=== PATIENT | female | born 1930 | race Asian ===

== ENCOUNTER 2017-02-21 10:12 | Inpatient (IN) | payer MEDICAID ==
[~2017-02-21] VITALS: Ht 162.6 cm; Wt 59.0 kg
[~2017-02-21 10:12] MED LIST: ACETAMINOP160 MG/53 ORAL; ACETAMINOPHEN325 M1 ORAL; ASCORBIC ACID500 MG ORAL; BENADRYL A12.5 MG/5 ORAL; BISACODYL5 MG RECTAL; CEFTRIAXON1 GM/50 ML IV; COLACE100 MG/10 NG; DOCUSATE SODIU100 MG ORAL; DULCOLAX10 MG RECTAL; DUONEB 0.5-3(2.53 ML HHN; HEPARIN SO5000 UNIT2 SUBQ; IPRATROPIU0.2 MG/1 M HHN; ISOSOURCE PO; LEVAQUIN500 MG ORAL; MIRALAX17 G2 ORAL; MIRALAX17 GM ORAL; MULTIVITAMINS1 EAC8 ORAL; NKM; PROTONIX40 M2 GT; ROCEPHIN 11 GM/50 ML IVPB; ROCEPHIN2 GM/50 ML IV; SALINE 10ML FLU10 ML IVF; ZINC SULFATE220 M1 ORAL
[2017-02-21] MEDS ORDERED: DOCUSATE SODIU100 MG GT (10:32)
[2017-02-21] MEDS ORDERED: VITAMIN C500 M1 GT (10:32)
[2017-02-21] MEDS ORDERED: MULTIVITAMINS1 EAC8 GT (10:32)
[2017-02-21 10:48] LABS: BASOPHILS % (AUTO) 0.5 % (0.0-2.0); EOSINOPHILS % (AUTO) 1.8 % (0.0-3.0); LYMPHOCYTES % (AUTO) 19.4 % (20.0-45.0); MEAN CORPUSCULAR HEMOGLOBIN 30.3 PG (27.0-31.0); MEAN CORPUSCULAR HGB CONC 30.9 G/DL (32.0-36.0); MEAN CORPUSCULAR VOLUME 98 FL (80-99); MEAN PLATELET VOLUME 8.1 FL (6.5-10.1); MONOCYTES % (AUTO) 9.9 % (1.0-10.0); NEUTROPHILS % (AUTO) 68.5 % (45.0-75.0); PLATELET COUNT 290 K/UL (150-450); WHITE BLOOD COUNT 11.7 K/UL (4.8-10.8)
[2017-02-21 11:07] LABS: TROPONIN I < 0.30 ng/mL (<=0.30)
[2017-02-21 11:08] VITALS: BP 151/98
[2017-02-21 11:10] LABS: ALANINE AMINOTRANSFERASE 15 U/L (3-33); ALBUMIN/GLOBULIN RATIO 0.5 (1.0-2.7); ANION GAP 17 (5-15); ASPARTATE AMINO TRANSFERASE 19 U/L (5-40); CALCIUM 9.3 mg/dL (8.6-10.2); CARBON DIOXIDE 26 mEQ/L (20-30); CHLORIDE 100 mEQ/L (98-107); CREATININE 0.9 mg/dL (0.5-0.9); HEMOLYSIS 0; POTASSIUM 4.4 mEQ/L (3.4-4.9); SODIUM 143 mEQ/L (135-145); TOTAL PROTEIN 9.2 g/dL (6.6-8.7)
[2017-02-21 11:20] LABS: CKMB < 1.5 ng/mL (< 3.8)
[2017-02-21 11:26] LABS: APPEARANCE,URINE CLOUDY; KETONES,URINE NEGATIVE (NEGATIVE); LEUKOCYTE ESTERASE ,URINE 3+ (NEGATIVE); NITRITE,URINE NEGATIVE (NEGATIVE); PH,URINE 6 (4.5-8.0); PROTEIN,URINE 3+ (NEGATIVE); UROBILINOGEN,URINE 4 MG/DL (0.0-1.0)
--- NOTE | 2017-02-21 11:26 | Diagnostic Imaging Report ---
Indications: Shortness of breath Technique: Portable AP chest Findings: Comparison: 01/26/2016 Mild left apical pleural thickening, 2 cm calcified nodule in/overlying left lung apex, linear density compatible with subsegmental atelectasis versus scarring left lung base all persist, unchanged. Right lung pleura remain relatively clear. Heart size and pulmonary vasculature remain within normal limits. Calcification and mild elongation of the thoracic aorta again noted and unchanged. IMPRESSION: No evidence of acute cardiopulmonary disease, unchanged Stable chronic changes as described
[2017-02-21] MEDS ORDERED: Cefepime 1gm vial ONE (11:37)
[2017-02-21] MEDS ORDERED: NS 55 ML IV ONE (11:37)
[2017-02-21 11:40] LABS: AMORPHOUS SEDIMENT,UR MODERATE /LPF; BACTERIA,URINE MANY /HPF; RBC,URINE 20-30 /HPF (0 - 2); SQUAMOUS EPITHELIAL CELL,UR MODERATE /LPF (NONE/OCC); WBC,URINE TNTC /HPF (0 - 2)
[2017-02-21] MEDS ORDERED: Azithromycin 500 MG in NS 275 ML IV ONE (11:45)
[2017-02-21] MEDS ORDERED: Cefepime HCl 1 GM in NS 55 ML IV ONE (11:45)
--- NOTE | 2017-02-21 11:50 | Emergency Room Report ---
History of Present Illness General Chief Complaint: Generalized Weakness Source: Medical Record, EMS Present Illness HPI 86-year-old female presents ED for evaluation. Patient resides in senior care. Per nursing staff patient has been having cough and congestive symptoms x1 day. Low O2 saturation. Patient placed on nasal cannula. Patient has dementia. Number blood baseline. Unable to provide any additional history at this time. Low-grade fever on rectal temperature. No reported chest pain. No reported nausea or vomiting. No other aggravating relieving factors. Denies any other associated symptoms Allergies: Coded Allergies: No Known Allergies (Unverified , 08/29/14) Patient History Past Medical History: HTN, GERD, CVA/TIA, dementia Past Surgical History: other - gtube Social History: Denies: alcohol use, drug use, smoking Now: No Immunizations: UTD Reviewed Nursing Documentation: PMH: Agreed, PSxH: Agreed Nursing Documentation-PMH Past Medical History: No History, Except For Hx Hypertension: Yes Hx Pacemaker: No Hx Asthma: No Hx COPD: No Hx Diabetes: No Hx Cancer: No Hx Gastrointestinal Problems: Yes - G tube, GERD Hx Dialysis: No Hx Neurological Problems: Yes - dementia Hx Cerebrovascular Accident: Yes Hx Transient Ischemic Attacks: Yes Hx Dementia: Yes Hx Seizures: No Hx Syncope: Yes Hx Dysphasia: Yes Review of Systems All Other Systems: negative except mentioned in HPI Physical Exam Vital Signs Date Time Temp Pulse Resp B/P Pulse Ox O2 Delivery O2 Flow Rate FiO2 02/21/17 10:05 97.7 107 20 123/75 97 Nasal Cannula 2.0 Sp02 EP Interpretation: reviewed, normal General Appearance: no apparent distress, other - dementia Head: normocephalic Eyes: bilateral eye PERRL, bilateral eye normal inspection ENT: normal ENT inspection Neck: normal inspection Respiratory: rhonchi Cardiovascular #1: regular rate, rhythm, no edema Gastrointestinal: normal inspection Rectal: deferred Genitourinary: no CVA tenderness Musculoskeletal: normal inspection Neurologic: other - dementia Psychiatric: other - dementia Skin: normal inspection Lymphatic: normal inspection Medical Decision Making Diagnostic Impression: Primary Impression: Pneumonia Qualified Codes: J18.9 - Pneumonia, unspecified organism Additional Impression: UTI (lower urinary tract infection) ER Course Hospital Course 86-year-old F presenting to ED with respiratory distress, cough and crackles Differential diagnoses include: Pneumonia, CHF exacerbation, pneumothorax, fluid overload Clinical course Patient placed on stretcher. On cardiac exercise physiologist with hypoxia on room air. After initial history and physical, I ordered labs, IV fluids, EKG, chest x-ray , blood cultures, UA. Patient placed on nasal cannula with O2 saturation improving Labs -leukocytosis noted, hemoglobin/hematocrit stable, electrolytes ok, lactate okay, trop negative. UA + bacteria CXR - L sided atelectasis Patient O2 sat remains above 90% on nasal cannula. Abx given Case discussed with Dr. Rodriguez and he agreed to the patient to his service for further care and support I feel this is a highly complex case requiring extensive working including EKG/ Rhythm strip, Xray/CT/US, Blood/urine lab work, repeat exams while in ED, and administration of strong opiates/narcotics for pain control, admission to hospital or close patient follow up. Diagnosis - pneumonia, UTI Patient admitted to telemetry in serious condition Labs Test 02/21/17 10:20 02/21/17 11:05 White Blood Count 11.7 K/UL (4.8-10.8) Red Blood Count 3.40 M/UL (4.20-5.40) Hemoglobin 10.3 G/DL (12.0-16.0) Hematocrit 33.3 % (37.0-47.0) Mean Corpuscular Volume 98 FL (80-99) Mean Corpuscular Hemoglobin 30.3 PG (27.0-31.0) Mean Corpuscular Hemoglobin Concent 30.9 G/DL (32.0-36.0) Red Cell Distribution Width 15.0 % (11.6-14.8) Platelet Count 290 K/UL (150-450) Mean Platelet Volume 8.1 FL (6.5-10.1) Neutrophils (%) (Auto) 68.5 % (45.0-75.0) Lymphocytes (%) (Auto) 19.4 % (20.0-45.0) Monocytes (%) (Auto) 9.9 % (1.0-10.0) Eosinophils (%) (Auto) 1.8 % (0.0-3.0) Basophils (%) (Auto) 0.5 % (0.0-2.0) Sodium Level 143 mEQ/L (135-145) Potassium Level 4.4 mEQ/L (3.4-4.9) Chloride Level 100 mEQ/L (98-107) Carbon Dioxide Level 26 mEQ/L (20-30) Anion Gap 17 (5-15) Blood Urea Nitrogen 28 mg/dL (7-23) Creatinine 0.9 mg/dL (0.5-0.9) Estimat Glomerular Filtration Rate mL/min (>60) Glucose Level 157 mg/dL (74-106) Lactic Acid Level 1.40 mmol/L (0.66-2.22) Calcium Level 9.3 mg/dL (8.6-10.2) Total Bilirubin 0.7 mg/dL (0.0-1.2) Aspartate Amino Transf (AST/SGOT) 19 U/L (5-40) Alanine Aminotransferase (ALT/SGPT) 15 U/L (3-33) Alkaline Phosphatase 210 U/L (35-104) Total Creatine Kinase 55 U/L (26-140) Creatine Kinase MB < 1.5 ng/mL (< 3.8) Creatine Kinase MB Relative Index Troponin I < 0.30 ng/mL (<=0.30) Pro-B-Type Natriuretic Peptide 393 pg/mL (0-450) Total Protein 9.2 g/dL (6.6-8.7) Albumin 3.1 g/dL (3.5-5.2) Globulin 6.1 g/dL Albumin/Globulin Ratio 0.5 (1.0-2.7) Urine Color Yellow Urine Appearance Cloudy Urine pH 6 (4.5-8.0) Urine Specific [place] 1.020 (1.005-1.035) Urine Protein 3+ (NEGATIVE) Urine Glucose (UA) Negative (NEGATIVE) Urine Ketones Negative (NEGATIVE) Urine Occult Blood 5+ (NEGATIVE) Urine Nitrite Negative (NEGATIVE) Urine Bilirubin Negative (NEGATIVE) Urine Urobilinogen 4 MG/DL (0.0-1.0) Urine Leukocyte Esterase 3+ (NEGATIVE) Urine RBC 20-30 /HPF (0 - 2) Urine WBC Tntc /HPF (0 - 2) Urine Squamous Epithelial Cells Moderate /LPF (NONE/OCC) Urine Amorphous Sediment Moderate /LPF (NONE) Urine Bacteria Many /HPF (NONE) EKG Diagnostic Results Rate: normal Rhythm: NSR ST Segments: no acute changes ASA given to the pt in ED: No Rhythm Strip Diag. Results EP Interpretation: yes Rhythm: NSR, no PVC's, no ectopy Chest X-Ray Diagnostic Results EP Interpretation: Yes Findings: no pneumothorax, no acute cardiopulmonary disease, other - L sided atelectasis ? effusion Number of Views: 1 Last Vital Signs Date Time Temp Pulse Resp B/P Pulse Ox O2 Delivery O2 Flow Rate FiO2 02/21/17 11:08 100.4 107 21 151/98 99 Nasal Cannula 2.0 Status: improved Disposition: ADMITTED INPATIENT Condition: Serious Referrals: ANTONY RODRIGUEZ (PCP) RADHA LEWIS M.D. Feb 21, 2017 11:50
[2017-02-21] MEDS ORDERED: Azithromycin Inj IV ONE (12:17)
[2017-02-21 13:41] VITALS: BP 119/41
--- NOTE | 2017-02-21 13:53 | History and Physical ---
History of Present Illness General Date patient seen: Feb 21, 2017 Time patient seen: 13:00 Reason for Hospitalization: Generalized Weakness Present Illness HPI 86-year-old female with hx of CVA, dysphagia, G tube, dementia, HTN presented to ED for evaluation. Patient resides in [facility]. Per nursing staff patient had cough and congestive symptoms x1 day. Low O2 saturation. No reported chest pain. No reported nausea or vomiting. Workup in ED revealed low-grade fever/rectal temp O2 sat 90% on RA, placed on NC mild leukocytosis, anemia UA + UTI, CXR with possible L side infiltrate patient admitted for further management Allergies: Coded Allergies: No Known Allergies (Unverified , 08/29/14) Medication History Scheduled Ascorbic Acid* (Vitamin C*), 500 MG GT DAILY, (Reported) Docusate Sodium* (Docusate Sodium*), 10 MG ORAL THREE TIMES A DAY, (Reported) Docusate Sodium* (Docusate Sodium*), 100 MG GT TWICE A DAY, (Reported) Heparin Sod (Porcine) (Heparin Sodium*), 5,000 UNITS SUBQ EVERY 12 HOURS, ( Reported) Multivitamin With Minerals (Multivitamins With Minerals*), 1 TAB ORAL DAILY, ( Reported) Multivitamin With Minerals (Multivitamins With Minerals*), 15 ML GT DAILY, ( Reported) Polyethylene Glycol 3350* (Miralax*), 17 GM ORAL DAILY, (Reported) Scheduled PRN Acetaminophen (Children's Acetaminophen), 325 MG ORAL Q6H PRN for Mild Pain/ Temp > 100.5, (Reported) Bisacodyl* (Dulcolax*), 10 MG RECTAL ONCE PRN for Constipation, (Reported) Ipratropium [place] 0.5MG/2.5ML (Ipratropium Soldier 0.5MG/2.5ML), 0.5 MG HHN Q6H PRN for Shortness of Breath, (Reported) Miscellaneous Medications Enteral Nutrition Formula (Twocal Hn Liquid), 65 ML PO, (Reported) Patient History History Provided By: Medical Record Healthcare decision maker Resuscitation status Advanced Directive on File Past Medical/Surgical History Past Medical/Surgical History: (1) Dementia (2) History of CVA (cerebrovascular accident) (3) Dysphagia (4) PEG tube malfunction (5) Anemia (6) CHF (congestive heart failure) (7) HTN (hypertension) Review of Systems ROS Narrative unable to obtain due to ALOC Physical Exam General Appearance: no apparent distress, other - chronically ill looking, nonverbal, bedridden female in NAD Lines, tubes and drains: peripheral HEENT: normocephalic, atraumatic, anicteric Neck: supple - trachea midline Respiratory/Chest: no respiratory distress, no accessory muscle use, decreased breath sounds Cardiovascular/Chest: normal rate, regular rhythm, no JVD Abdomen: normal bowel sounds, soft, feeding tube - G tube Extremities: no calf tenderness, no edema, other - contracted LE Neurologic: abnormal gait - bedridden , other - awake, nonverbal, spastic LE Last 24 Hour Vital Signs Date Time Temp Pulse Resp B/P Pulse Ox O2 Delivery O2 Flow Rate FiO2 02/21/17 13:41 100.1 107 20 119/41 100 Nasal Cannula 2.0 02/21/17 11:08 100.4 107 21 151/98 99 Nasal Cannula 2.0 02/21/17 10:05 97.7 107 20 123/75 97 Nasal Cannula 2.0 Laboratory Tests Test 02/21/17 10:20 02/21/17 11:05 White Blood Count 11.7 K/UL (4.8-10.8) H Red Blood Count 3.40 M/UL (4.20-5.40) L Hemoglobin 10.3 G/DL (12.0-16.0) L Hematocrit 33.3 % (37.0-47.0) L Mean Corpuscular Volume 98 FL (80-99) Mean Corpuscular Hemoglobin 30.3 PG (27.0-31.0) Mean Corpuscular Hemoglobin Concent 30.9 G/DL (32.0-36.0) L Red Cell Distribution Width 15.0 % (11.6-14.8) H Platelet Count 290 K/UL (150-450) Mean Platelet Volume 8.1 FL (6.5-10.1) Neutrophils (%) (Auto) 68.5 % (45.0-75.0) Lymphocytes (%) (Auto) 19.4 % (20.0-45.0) L Monocytes (%) (Auto) 9.9 % (1.0-10.0) Eosinophils (%) (Auto) 1.8 % (0.0-3.0) Basophils (%) (Auto) 0.5 % (0.0-2.0) Sodium Level 143 mEQ/L (135-145) Potassium Level 4.4 mEQ/L (3.4-4.9) Chloride Level 100 mEQ/L (98-107) Carbon Dioxide Level 26 mEQ/L (20-30) Anion Gap 17 (5-15) H Blood Urea Nitrogen 28 mg/dL (7-23) H Creatinine 0.9 mg/dL (0.5-0.9) Estimat Glomerular Filtration Rate mL/min (>60) Glucose Level 157 mg/dL (74-106) H Lactic Acid Level 1.40 mmol/L (0.66-2.22) Calcium Level 9.3 mg/dL (8.6-10.2) Total Bilirubin 0.7 mg/dL (0.0-1.2) Aspartate Amino Transf (AST/SGOT) 19 U/L (5-40) Alanine Aminotransferase (ALT/SGPT) 15 U/L (3-33) Alkaline Phosphatase 210 U/L (35-104) H Total Creatine Kinase 55 U/L (26-140) Creatine Kinase MB < 1.5 ng/mL (< 3.8) Creatine Kinase MB Relative Index Troponin I < 0.30 ng/mL (<=0.30) Pro-B-Type Natriuretic Peptide 393 pg/mL (0-450) Total Protein 9.2 g/dL (6.6-8.7) H Albumin 3.1 g/dL (3.5-5.2) L Globulin 6.1 g/dL Albumin/Globulin Ratio 0.5 (1.0-2.7) L Urine Color Yellow Urine Appearance Cloudy Urine pH 6 (4.5-8.0) Urine Specific [place] 1.020 (1.005-1.035) Urine Protein 3+ (NEGATIVE) H Urine Glucose (UA) Negative (NEGATIVE) Urine Ketones Negative (NEGATIVE) Urine Occult Blood 5+ (NEGATIVE) H Urine Nitrite Negative (NEGATIVE) Urine Bilirubin Negative (NEGATIVE) Urine Urobilinogen 4 MG/DL (0.0-1.0) H Urine Leukocyte Esterase 3+ (NEGATIVE) H Urine RBC 20-30 /HPF (0 - 2) H Urine WBC Tntc /HPF (0 - 2) H Urine Squamous Epithelial Cells Moderate /LPF (NONE/OCC) H Urine Amorphous Sediment Moderate /LPF (NONE) H Urine Bacteria Many /HPF (NONE) H Height (Feet): 5 Height (Inches): 4.00 Weight (Pounds): 130 Assessment/Plan Assessment/Plan ASSESSMENT hypoxemia UTI possible PNA aspiration risk dementia Dysphagia, G tube Hx of CVA HTN anemia PLAN OF CARE tele o2 HHN , titrate to keep sat above 92% empiric abx sputum , urine cx ID consult CXR in am strict aspiration precautions GT feeding, monitor tolerance diet eval re recommended GT feeding venous Duplex BLE DVT prophylaxis bowel regimen pain management lipid panel in am monitor BP, currently not on any anti HTN medications monitor HH, if trend down, initiate anemia work case discussed and evaluated by supervising physician German Browne),Valentina NIELSEN Feb 21, 2017 13:53
[2017-02-21] MEDS ORDERED: Mylanta II UD 30ml ORAL PRN (14:00)
[2017-02-21] MEDS ORDERED: Miralax 17gm pkt ORAL PRN (14:00)
[2017-02-21] MEDS ORDERED: Morphine Sulfate 2mg/ml Inj IVP PRN (14:00)
[2017-02-21] MEDS ORDERED: DuoNeb 0.5-3(2.5)mg/3ml neb HHN PRN (14:00)
[2017-02-21 15:40] VITALS: BP 120/41
[2017-02-21 16:45] VITALS: BP 151/74
[2017-02-21] MEDS: D5 1/2NS 1,000 ML IV SCH (17:07)
[2017-02-21] MEDS ORDERED: Vancomycin 1250mg/D5W 275ml IVPB ONE ×2 (18:00)
[2017-02-21 20:00] VITALS: BP 114/53
[2017-02-21] MEDS ORDERED: Piperacillin/Tazobactam 3.375 GM in NS 110 ML IVPB SCH (20:00)
[2017-02-21] MEDS: Piperacillin/Tazobactam 3.375 GM in NS 110 ML IVPB SCH (20:06)
[2017-02-21] MEDS: Heparin 5000 units/ml inj SUBQ SCH (20:44)
[2017-02-21] MEDS ORDERED: Zolpidem 5mg tab ORAL PRN (21:00)
[2017-02-22] VITALS: BP 112/56
[2017-02-22] MEDS ORDERED: Acetaminophen 650mg/20.3ml GT PRN ×2 (01:00→21:00)
[2017-02-22 04:00] VITALS: BP 115/56
[2017-02-22] MEDS: Piperacillin/Tazobactam 3.375 GM in NS 110 ML IVPB SCH ×3 (05:36→21:50)
[2017-02-22 06:36] LABS: BASOPHILS % (AUTO) 0.7 % (0.0-2.0); EOSINOPHILS % (AUTO) 4.2 % (0.0-3.0); LYMPHOCYTES % (AUTO) 13.7 % (20.0-45.0); MEAN CORPUSCULAR HEMOGLOBIN 30.1 PG (27.0-31.0); MEAN CORPUSCULAR HGB CONC 30.5 G/DL (32.0-36.0); MEAN CORPUSCULAR VOLUME 99 FL (80-99); MEAN PLATELET VOLUME 8.4 FL (6.5-10.1); MONOCYTES % (AUTO) 8.3 % (1.0-10.0); NEUTROPHILS % (AUTO) 73.1 % (45.0-75.0); PLATELET COUNT 246 K/UL (150-450); RED BLOOD COUNT 2.77 M/UL (4.20-5.40); RED CELL DISTRIBUTION WIDTH 15.5 % (11.6-14.8); WHITE BLOOD COUNT 9.4 K/UL (4.8-10.8)
[2017-02-22 07:14] LABS: ANION GAP 13 (5-15); CALCIUM 8.5 mg/dL (8.6-10.2); CARBON DIOXIDE 25 mEQ/L (20-30); CHLORIDE 104 mEQ/L (98-107); CHOLESTEROL 116 mg/dL (< 200); CREATININE 0.9 mg/dL (0.5-0.9); HEMOLYSIS 0; LDL CHOLESTEROL (CALC.) 66 mg/dL (60-99); SODIUM 142 mEQ/L (135-145)
[2017-02-22 08:03] VITALS: BP 94/44
[2017-02-22] MEDS: Heparin 5000 units/ml inj SUBQ SCH ×2 (09:11→21:54)
--- NOTE | 2017-02-22 11:36 | Diagnostic Imaging Report ---
Indication: SOB Technique: One view of the chest Comparison: none Findings: Calcified granuloma is seen in the left lung apex again. There is some atelectasis or scarring in the left lateral lung base. The lungs and pleural spaces are otherwise clear. Impression: Unchanged, over one day, findings as above.
[2017-02-22] MEDS: D5 1/2NS 1,000 ML IV SCH ×2 (11:52→21:49)
--- NOTE | 2017-02-22 11:55 | Diagnostic Imaging Report ---
APPROVED REPORT CPT Code: 99584 Present Symptoms Lower Extremity Pain: Bilateral BILATERAL: Imaging reveals a patent deep venous system bilaterally. There is no evidence of thrombus within the femoral, popliteal or tibial segments. The greater saphenous veins are also within normal limits. Doppler indicates normal spontaneous flow within these segments.
[2017-02-22 11:59] VITALS: BP 100/52
--- NOTE | 2017-02-22 13:02 | Consultation ---
Consult Note Assessment/Plan ID Dic # [id number] MICRO: 01/25 BCx NGTD 01/25 UCx >100K P.mirabilis / SCx NRF 01/25 Influenza(-) ASSESSMENT: 85 y/o female with: // Recurrent UTI - h/o P.mirabilis, E.coli, ESBL(+) K.pneumoniae - h/o cysts, no stones CT 05/2015 // Multiple superficial decubiti, not grossly infected // h/o CONS, P.penneri bacteremia r/o recurrence - BCx pending // Leukocytosis, SP // Fever x1 - resolved // Dementia, h/o CVA // Dysphagia s/p PEG // Functional quadriplegia / bedbound / contracted // NH resident // MRSA colonized // NKDA // Full Code PLAN: - continue Zosyn d# 2 / 7 DC IV vancomycin d# 2 - f/u cultures ( Bl ,Ur ) - monitor CBC, temperatures - monitor BMP - monitor CXR - wound care - contact isolation WILL MURRELL M.D. February 22, 2017 13:02
--- NOTE | 2017-02-22 15:06 | Pulmonology Progress Note ---
Assessment/Plan Problems: (1) Sepsis (2) Dementia (3) Anemia (4) History of CVA (cerebrovascular accident) Assessment/Plan IV fluids IV antibiotics check cultures tolerating Gtube aspiration precaution Subjective ROS Limited/Unobtainable: Yes Interval Events: comfortable Allergies: Coded Allergies: No Known Allergies (Unverified , 08/29/14) Objective Last 24 Hour Vital Signs Date Time Temp Pulse Resp B/P Pulse Ox O2 Delivery O2 Flow Rate FiO2 02/22/17 11:59 97.0 64 18 100/52 97 Room Air 02/22/17 08:03 97.0 91 18 94/44 96 Simple Mask 2.0 02/22/17 08:00 86 02/22/17 04:00 97.9 86 20 115/56 Nasal Cannula 2.0 98 02/22/17 04:00 94 02/22/17 01:56 99.0 02/22/17 00:00 115 02/22/17 00:00 100.0 115 20 112/56 Nasal Cannula 2.0 100 02/21/17 20:00 99.0 110 18 114/53 Nasal Cannula 2.0 100 02/21/17 20:00 107 02/21/17 16:45 97.0 64 18 151/74 Nasal Cannula 2.0 95 02/21/17 15:41 99.8 106 20 120/41 100 Nasal Cannula 2.0 02/21/17 15:40 99.8 106 20 120/41 100 Nasal Cannula 2.0 Intake and Output 02/21/17 02/22/17 19:00 07:00 Intake Total 1380 ml 1102.5 ml Output Total 10 ml 650 ml Balance 1370 ml 452.5 ml Intake Free Water 90 ml IV Total 1380 ml 737.5 ml Tube Feeding 275 ml Output Urine Total 10 ml 650 ml General Appearance: WD/WN HEENT: normocephalic, atraumatic Respiratory/Chest: chest wall non-tender, lungs clear Cardiovascular: normal peripheral pulses, normal rate Abdomen: normal bowel sounds, soft, non tender, other - gtube Extremities: no cyanosis Skin: no rash Neurologic/Psychiatric: chief controller station II-XII grossly normal Microbiology Date/Time Source Procedure Growth Status 02/21/17 10:50 Blood Blood Culture - Preliminary Resulted 02/21/17 11:05 Urine,Clean Catch Urine Culture - Preliminary Gram Negative Bacillus 1 Resulted Laboratory Tests 02/22/17 05:50: White Blood Count 9.4, Red Blood Count 2.77L, Hemoglobin 8.3L, Hematocrit 27.3L , Mean Corpuscular Volume 99, Mean Corpuscular Hemoglobin 30.1, Mean Corpuscular Hemoglobin Concent 30.5L, Red Cell Distribution Width 15.5H, Platelet Count 246, Mean Platelet Volume 8.4, Neutrophils (%) (Auto) 73.1, Lymphocytes (%) (Auto) 13.7L, Monocytes (%) (Auto) 8.3, Eosinophils (%) (Auto) 4.2H, Basophils (%) (Auto) 0.7, Sodium Level 142, Potassium Level 4.0, Chloride Level 104, Carbon Dioxide Level 25, Anion Gap 13, Blood Urea Nitrogen 25H, Creatinine 0.9, Estimat Glomerular Filtration Rate , Glucose Level 202H, Calcium Level 8.5L, Triglycerides Level 106, Cholesterol Level 116, LDL Cholesterol 66, HDL Cholesterol 29, Cholesterol/HDL Ratio 4.0, Thyroid Stimulating Hormone (TSH) 1.570 Current Medications Medications (Trade) Dose Ordered Sig/Yasmine Route PRN Reason Start Time Stop Time Status Last Admin Dose Admin Acetaminophen (Tylenol) 650 mg Q4H PRN GT Mild Pain/Temp > 100.5 02/22/17 01:00 03/24/17 00:59 02/22/17 01:26 Al Hydroxide/Mg Hydroxide (Mylanta II) 30 ml Q6H PRN ORAL dyspepsia 02/21/17 14:00 03/23/17 13:59 Albuterol/ Ipratropium (DuoNeb 0.5-3(2.5)mg/3ml) 3 ml Q6H PRN HHN Shortness of Breath 02/21/17 14:00 02/26/17 13:59 Dextrose STAT PRN IV Hypoglycemia 02/21/17 14:00 03/23/17 13:59 Dextrose/Sodium Chloride (D5 0.45% NS) 1,000 ml @ 50 mls/hr Q20H IV 02/21/17 15:30 03/23/17 15:29 02/22/17 11:52 Diphenhydramine HCl (Benadryl) 25 mg Q6H PRN ORAL Itching/Pruritis 02/21/17 14:00 03/23/17 13:59 Heparin Sodium (Porcine) (Heparin 5000 units/ml) 5,000 units EVERY 12 HOURS SUBQ 02/21/17 21:00 03/23/17 20:59 02/22/17 09:11 Morphine Sulfate (Morphine Sulfate) 1 mg Q6H PRN IVP PAIN 4-10 02/21/17 14:00 02/28/17 13:59 Ondansetron HCl (Zofran) 4 mg Q6H PRN IVP Nausea & Vomiting 02/21/17 14:00 03/23/17 13:59 Piperacillin Sod/ Tazobactam Sod/ Sodium Chloride (Zosyn/Sodium Chloride) 110 ml @ 27.5 mls/hr Q8HR IVPB 02/21/17 20:00 02/28/17 19:59 02/22/17 13:50 Polyethylene Glycol (Miralax) 17 gm DAILYPRN PRN ORAL Constipation 02/21/17 14:00 03/23/17 13:59 Ranitidine HCl (Zantac) 150 mg DAILY GT 02/22/17 09:00 03/24/17 08:59 02/22/17 09:10 Zolpidem Tartrate (Ambien) 5 mg HSPRN PRN ORAL Insomnia 02/21/17 21:00 03/23/17 20:59 ANTONY NORRIS February 22, 2017 15:06
--- NOTE | 2017-02-22 16:05 | Wound Care Consultation ---
Wound Assessment Wound Assessment #1: Wound Present on Admission: Yes New Wound: No Status Change of Wound: No Wound Location Body Site Modif: left, upper Wound Location Body Site: thigh Wound Type: scar Mya Test: Does not Mya Wound Thickness: Full Thickness Wound Length: 4.0 Wound Width: 6.0 Wound Depth: utd Percent of Wound [place]/Red: 100 Wound Drainage Amount: None Wound Drainage Odor: None/Absent Tissue Surrounding Wound: Intact Wound General Appearance: Asymptomatic, Open to air Wound Assessment #2: Wound Number: #2 Wound Present on Admission: Yes New Wound: No Status Change of Wound: No Wound Location Body Site Modif: left Wound Location Body Site: trochanter Wound Type: pressure ulcer Mya Test: Does not Mya Pressure Ulcer Stage: IV/unstageable Wound Thickness: Full Thickness Wound Length: 4.0 Wound Width: 2.0 Wound Depth: utd Percent of Wound [place]/Red: 80 Percent of Wound Black/Brown: 20 Wound Drainage Description: Serosanguineous Wound Drainage Amount: Scant Wound Drainage Odor: None/Absent Tissue Surrounding Wound: full thickness scar tissue Wound General Appearance: Reddened Wound Assessment #3: Wound Number: #3 Wound Present on Admission: Yes New Wound: No Status Change of Wound: No Wound Location Body Site Modif: left Wound Location Body Site: back Wound Type: scar Mya Test: Does not Mya Wound Thickness: Full Thickness Wound Length: 5.0 Wound Width: 10.0 Wound Depth: utd Percent of Wound [place]/Red: 100 Wound Drainage Amount: None Wound Drainage Odor: None/Absent Tissue Surrounding Wound: Intact Wound General Appearance: Asymptomatic Wound Assessment #4: Wound Number: #4 Wound Present on Admission: Yes New Wound: No Status Change of Wound: No Wound Location Body Site Modif: mid Wound Location Body Site: sacral Wound Type: pressure ulcer Mya Test: Does not Mya Pressure Ulcer Stage: IV/unstageable Wound Thickness: Full Thickness Wound Length: 2.0 Wound Width: 6.0 Wound Depth: utd Percent of Wound Purple/Maroon: 100 Wound Drainage Amount: Scant Wound Drainage Odor: None/Absent Tissue Surrounding Wound: full thickness scar tissue Wound General Appearance: Reddened, Draining Wound Assessment #5: Wound Number: #5 Wound Present on Admission: Yes New Wound: No Status Change of Wound: No Wound Location Body Site Modif: right, lateral Wound Location Body Site: foot Wound Type: pressure ulcer Mya Test: Does not Mya Pressure Ulcer Stage: IV/unstageable Wound Thickness: Full Thickness Wound Length: 2.0 Wound Width: 8.0 Wound Depth: utd Percent of Wound Bed Yellow/Wh: 100 Wound Drainage Description: Serosanguineous Wound Drainage Amount: Scant Wound Drainage Odor: None/Absent Tissue Surrounding Wound: Macerated Wound General Appearance: Draining Wound Assessment #6: Wound Number: #6 Wound Present on Admission: Yes New Wound: No Status Change of Wound: No Wound Location Body Site Modif: right Wound Location Body Site: ischial tuberosity Wound Type: scar Mya Test: Does not Mya Wound Thickness: Full Thickness - scar tissue Wound Length: 4.0 Wound Width: 5.0 Wound Depth: utd Percent of Wound [place]/Red: 100 Wound Drainage Amount: None Wound Drainage Odor: None/Absent Tissue Surrounding Wound: Intact Wound General Appearance: Asymptomatic Wound Assessment #7: Wound Number: #7 Wound Present on Admission: Yes New Wound: No Status Change of Wound: No Wound Location Body Site Modif: right Wound Location Body Site: foot - mid, malleolus Wound Type: scar Mya Test: Does not Mya Wound Thickness: Full Thickness - scar tissue Wound Drainage Amount: None Wound Drainage Odor: None/Absent Tissue Surrounding Wound: Intact Wound General Appearance: Asymptomatic Wound Comment #1 Left upper thigh with full thickness scar tissue #2 Left trochanter stage unstageable pressure ulcer. [place] wound with full thickness tissue #3 Left mid back with full thickness scar tissue #4 Sacral unstageable pressure ulcer with full thickness scar tissue #5 Right lateral foot unstageable pressure ulcer #6 Right ischial tuberosity full thickness scar tissue #7 Right mid foot and malleolus with full thickness scar tissue Recommendation -Sacral area Cleanse with saline, pat dry, apply Triad cream, cover with bordered gauze PRN soiled/dislodged -Right lateral foot and left trochanter pressure ulcer Cleanse with saline, pat dry, apply adaptic cover with bordered gauze PRN soiled/dislodged -Turn and reposition -Keep clean and dry -Optimize nutrition -Low air loss mattress -Offload both heels -Heel protector -Assess and f/u accordingly for any changes JARRED BOLES RN February 22, 2017 16:05
[2017-02-22 16:11] VITALS: BP 119/61
[2017-02-22 16:38] LABS: INR 1.1 (0.9-1.1)
[2017-02-22] MEDS ORDERED: Vancomycin 500mg/D5W 110ml IVPB SCH ×2 (18:00)
[2017-02-22 18:25] LABS: ANISOCYTOSIS 1+; BAND NEUTROPHILS % (MANUAL) 3 % (0-8); BASOPHILS % (MANUAL) 0 % (0-2); EOSINOPHILS % (MANUAL) 8 % (0-3); HYPOCHROMASIA 1+; LYMPHOCYTES % (MANUAL) 13 % (20-45); NEUTROPHILS % (MANUAL) 70 % (45-75); PLATELET ESTIMATE ADEQUATE; PLATELET MORPHOLOGY NORMAL; TOTAL CELLS COUNTED 100
[2017-02-22 18:26] LABS: PATH BLOOD SMEAR/OMC SENT TO PATHOLOGIST
[2017-02-22 19:37] LABS: RETICULOCYTE COUNT 1.2 % (0.0-2.0)
[2017-02-22 20:00] VITALS: BP 106/68
[2017-02-22] MEDS ORDERED: Zolpidem 5mg tab GT PRN (21:00)
[2017-02-22] MEDS ORDERED: Morphine Sulfate 2mg/ml Inj IVP PRN (21:30)
[2017-02-22] MEDS ORDERED: DuoNeb 0.5-3(2.5)mg/3ml neb HHN PRN (21:30)
[2017-02-22] MEDS ORDERED: Mylanta II UD 30ml ORAL PRN (21:30)
[2017-02-22] MEDS ORDERED: Miralax 17gm pkt ORAL PRN (21:30)
[2017-02-23 04:43] VITALS: BP 95/53
[2017-02-23] MEDS: Piperacillin/Tazobactam 3.375 GM in NS 110 ML IVPB SCH ×3 (05:00→21:06)
[2017-02-23 06:34] LABS: BASOPHILS % (AUTO) 0.7 % (0.0-2.0); EOSINOPHILS % (AUTO) 6.7 % (0.0-3.0); LYMPHOCYTES % (AUTO) 21.2 % (20.0-45.0); MEAN CORPUSCULAR HEMOGLOBIN 30.1 PG (27.0-31.0); MEAN CORPUSCULAR HGB CONC 31.2 G/DL (32.0-36.0); MEAN CORPUSCULAR VOLUME 97 FL (80-99); MEAN PLATELET VOLUME 8.3 FL (6.5-10.1); MONOCYTES % (AUTO) 7.4 % (1.0-10.0); NEUTROPHILS % (AUTO) 64.1 % (45.0-75.0); PLATELET COUNT 266 K/UL (150-450); RED BLOOD COUNT 2.68 M/UL (4.20-5.40); RED CELL DISTRIBUTION WIDTH 14.8 % (11.6-14.8); WHITE BLOOD COUNT 8.5 K/UL (4.8-10.8)
[2017-02-23 07:10] LABS: ALANINE AMINOTRANSFERASE 12 U/L (3-33); ALBUMIN/GLOBULIN RATIO 0.4 (1.0-2.7); ANION GAP 12 (5-15); ASPARTATE AMINO TRANSFERASE 19 U/L (5-40); CALCIUM 8.6 mg/dL (8.6-10.2); CARBON DIOXIDE 24 mEQ/L (20-30); CHLORIDE 104 mEQ/L (98-107); CREATININE 0.8 mg/dL (0.5-0.9); HEMOLYSIS 0; POTASSIUM 3.7 mEQ/L (3.4-4.9); SODIUM 140 mEQ/L (135-145); TOTAL PROTEIN 7.3 g/dL (6.6-8.7)
--- NOTE | 2017-02-23 07:48 | Consultation ---
DATE OF CONSULTATION: INFECTIOUS DISEASE CONSULTATION CONSULTING PHYSICIAN: Jose David Salas M.D. REFERRING PHYSICIAN: Maryann Rodriguez M.D. REASON FOR CONSULTATION: Evaluation of the patient for sepsis and antibiotic management. HISTORY OF PRESENT ILLNESS: The patient is an 86-year-old female with multiple medical problems in the past who was brought to this hospital with worsening of shortness of breath and general weakness. The patient infection. The patient has been started on IV antibiotics. Infectious Diseases consultation has been requested for further evaluation of the patient's antibiotic management. The patient is not able to provide much information. Information is gathered through the chart and speaking with staff. PAST MEDICAL HISTORY: Significant for 1. . 2. History of depression. 3. History of in the past. 4. History of dementia. 5. History of dysphagia. 6. History of . ALLERGIES: No known drug allergies. MEDICATIONS: IV Vancomycin and Zosyn. SOCIAL HISTORY: The patient lives in a senior care. FAMILY HISTORY: Unobtainable. PHYSICAL EXAMINATION: VITAL SIGNS: Temperature 97 degrees, blood pressure is 100/68, pulse 64, respiratory rate 18, and T-max 100.4. HEENT: Mild pale conjunctivae. No icterus. NECK: No lymphadenopathy. CHEST: Coarse breathing sounds. HEART: S1 and S2. ABDOMEN: Soft and nontender. EXTREMITIES: No cyanosis. NEUROLOGIC: Nonverbal. LABORATORY AND DIAGNOSTIC DATA: White blood cells of 9.4, hemoglobin 8.6, and platelets 246,000. UA, too numerous to count white blood cells. BUN 25 and creatinine 0.8. AST and ALT are unremarkable. Alkaline phosphatase 210. Urine culture is growing gram-negative rods. Chest x-ray showed apex atelectasis. ASSESSMENT: The patient is an 86-year-old female with the above-noted problems who appears to have urinary tract infection. The patient has been admitted to this medical center with sepsis. There is no evidence of pneumonia at this time. PLAN: 1. We will continue the patient on IV Zosyn. 2. We will discontinue vancomycin. 3. CBC. 4. BMP. 5. Monitor cultures (blood and urine). 6. Monitor chest x-ray. 7. Based on the patient's clinical course and laboratories, we will do further recommendations. Thank you, Dr. Rodriguez, for allowing me to participate in the care of this patient. I will follow the patient with you during this hospitalization. Jose David Salas M.D. DR: Susan JOB#: [id number] CC:
[2017-02-23 08:18] VITALS: BP 105/51
--- NOTE | 2017-02-23 08:22 | Cardiology Report ---
APPROVED REPORT EKG Measurement Heart [id number] Sinus tachycardia with premature atrial complexes Otherwise normal ECG
[2017-02-23] MEDS: Heparin 5000 units/ml inj SUBQ SCH ×2 (08:25→21:04)
--- NOTE | 2017-02-23 09:42 | Infectious Diseases Prog Note ---
Assessment/Plan Assessment/Plan ASSESSMENT: 86 y/o female with: // Recurrent UTI UCx : GNR - h/o P.mirabilis, E.coli, ESBL(+) K.pneumoniae - h/o cysts, no stones CT 05/2015 // CONS in 1/2 sets : contaminant repeat BCx pending // Multiple superficial decubiti, not grossly infected // Leukocytosis, SP // Fever x1 - resolved // Dementia, h/o CVA // Dysphagia s/p PEG // Functional quadriplegia / bedbound / contracted // NH resident // MRSA colonized // NKDA // Full Code PLAN: - continue Zosyn d# 3 / 7 ( 02/23 SP IV vancomycin d# 3 ) - f/u cultures ( Bl ,Ur ) - monitor CBC, temperatures - monitor BMP - monitor CXR - wound care - contact isolation Subjective Constitutional: Denies: anorexia, chills, drenching sweats, fatigue, fever, no symptoms, other Allergies: Coded Allergies: No Known Allergies (Unverified , 08/29/14) Objective Vital Signs Last 24 Hour Vital Signs Date Time Temp Pulse Resp B/P Pulse Ox O2 Delivery O2 Flow Rate FiO2 02/23/17 08:18 99.3 93 20 105/51 96 Room Air 02/23/17 04:43 97.0 101 21 95/53 96 Room Air 02/22/17 23:18 97 Room Air 02/22/17 23:18 Room Air 21 02/22/17 23:16 93 18 Room Air 02/22/17 20:00 98.1 102 19 106/68 96 Room Air 02/22/17 16:11 97.3 100 19 119/61 98 Room Air 02/22/17 12:00 93 02/22/17 11:59 97.0 64 18 100/52 97 Room Air Height (Feet): 5 Height (Inches): 4.00 Weight (Pounds): 130 HEENT: mucous membranes moist Respiratory/Chest: no respiratory distress Cardiovascular: regularly irregular Abdomen: no organomegaly Microbiology Date/Time Source Procedure Growth Status 02/21/17 10:50 Blood Blood Culture - Preliminary Staphylococcus Sp Coag Neg Resulted 02/21/17 10:20 Blood Blood Culture - Preliminary NO GROWTH AFTER 24 HOURS Resulted 02/21/17 11:35 Nasal Nares MRSA Culture - Final NO METHICILLIN RESISTANT STAPH AUREUS... Complete 02/21/17 11:05 Urine,Clean Catch Urine Culture - Preliminary Gram Negative Bacillus 1 Resulted 02/21/17 11:35 Rectum VRE Culture - Final NO VANCOMYCIN RESISTANT ENTEROCOCCUS ... Complete Laboratory Tests Test 02/22/17 16:00 02/23/17 05:30 Erythrocyte Sedimentation Rate 130 MM/HR (0-42) H Reticulocyte Count 1.2 % (0.0-2.0) Prothrombin Time 11.0 SEC (9.30-11.50) Prothromb Time International Ratio 1.1 (0.9-1.1) Activated Partial Thromboplast Time 33 SEC (23-33) Iron Level 17 ug/dL (37-145) L Total Iron Binding Capacity 150 ug/dL (250-400) L Percent Iron Saturation 11 % (15-50) L Unsaturated Iron Binding 133 ug/dL (112-346) Lactate Dehydrogenase 208 U/L (135-230) Carcinoembryonic Antigen 2.1 ng/mL Vitamin B12 Level 386 pg/mL (211-946) Folate Pending White Blood Count 8.5 K/UL (4.8-10.8) Red Blood Count 2.68 M/UL (4.20-5.40) L Hemoglobin 8.1 G/DL (12.0-16.0) L Hematocrit 25.9 % (37.0-47.0) L Mean Corpuscular Volume 97 FL (80-99) Mean Corpuscular Hemoglobin 30.1 PG (27.0-31.0) Mean Corpuscular Hemoglobin Concent 31.2 G/DL (32.0-36.0) L Red Cell Distribution Width 14.8 % (11.6-14.8) Platelet Count 266 K/UL (150-450) Mean Platelet Volume 8.3 FL (6.5-10.1) Neutrophils (%) (Auto) 64.1 % (45.0-75.0) Lymphocytes (%) (Auto) 21.2 % (20.0-45.0) Monocytes (%) (Auto) 7.4 % (1.0-10.0) Eosinophils (%) (Auto) 6.7 % (0.0-3.0) H Basophils (%) (Auto) 0.7 % (0.0-2.0) Sodium Level 140 mEQ/L (135-145) Potassium Level 3.7 mEQ/L (3.4-4.9) Chloride Level 104 mEQ/L (98-107) Carbon Dioxide Level 24 mEQ/L (20-30) Anion Gap 12 (5-15) Blood Urea Nitrogen 20 mg/dL (7-23) Creatinine 0.8 mg/dL (0.5-0.9) Estimat Glomerular Filtration Rate mL/min (>60) Glucose Level 174 mg/dL (74-106) H Calcium Level 8.6 mg/dL (8.6-10.2) Total Bilirubin 0.4 mg/dL (0.0-1.2) Aspartate Amino Transf (AST/SGOT) 19 U/L (5-40) Alanine Aminotransferase (ALT/SGPT) 12 U/L (3-33) Alkaline Phosphatase 178 U/L (35-104) H Pro-B-Type Natriuretic Peptide 1231 pg/mL (0-450) H Total Protein 7.3 g/dL (6.6-8.7) Albumin 2.4 g/dL (3.5-5.2) L Globulin 4.9 g/dL Albumin/Globulin Ratio 0.4 (1.0-2.7) L Current Medications Medications (Trade) Dose Ordered Sig/Yasmine Route PRN Reason Start Time Stop Time Status Last Admin Dose Admin Acetaminophen (Tylenol) 650 mg Q4H PRN GT Mild Pain/Temp > 100.5 02/22/17 21:00 03/24/17 20:59 Al Hydroxide/Mg Hydroxide (Mylanta II) 30 ml Q6H PRN ORAL dyspepsia 02/22/17 21:30 03/24/17 21:29 Albuterol/ Ipratropium (DuoNeb 0.5-3(2.5)mg/3ml) 3 ml Q6H PRN HHN Shortness of Breath 02/22/17 21:30 02/27/17 21:29 Dextrose (Dextrose 50%) STAT PRN IV Hypoglycemia 02/22/17 21:30 03/24/17 21:29 Dextrose/Sodium Chloride 1,000 ml @ 50 mls/hr Q20H IV 02/22/17 21:30 03/24/17 21:29 02/22/17 21:49 Diphenhydramine HCl (Benadryl) 25 mg Q6H PRN ORAL Itching/Pruritis 02/22/17 21:30 03/24/17 21:29 Heparin Sodium (Porcine) (Heparin 5000 units/ml) 5,000 units EVERY 12 HOURS SUBQ 02/22/17 22:00 03/24/17 21:59 02/23/17 08:25 Morphine Sulfate (Morphine Sulfate) 1 mg Q6H PRN IVP PAIN 4-10 02/22/17 21:30 03/01/17 21:29 Ondansetron HCl (Zofran) 4 mg Q6H PRN IVP Nausea & Vomiting 02/22/17 21:30 03/24/17 21:29 Piperacillin Sod/ Tazobactam Sod 3.375 gm/Sodium Chloride 110 ml @ 27.5 mls/hr Q8HR IVPB 02/22/17 22:00 03/01/17 21:59 02/23/17 05:00 Polyethylene Glycol (Miralax) 17 gm DAILYPRN PRN ORAL Constipation 02/22/17 21:30 03/24/17 21:29 Ranitidine HCl (Zantac) 150 mg DAILY GT 02/23/17 09:00 03/25/17 08:59 02/23/17 08:24 Vancomycin HCl (Vanco rx to dose) 1 ea DAILY PRN MISC Per rx protocol 02/22/17 21:30 03/24/17 21:29 Vancomycin HCl/ Dextrose (Vancomycin/D5W) 110 ml @ 110 mls/hr Q24H IVPB 02/23/17 18:00 02/28/17 17:59 Zolpidem Tartrate (Ambien) 5 mg HSPRN PRN GT Insomnia 02/22/17 21:00 03/24/17 20:59 WILL MURRELL M.D. February 23, 2017 09:42
[2017-02-23] MEDS ORDERED: D5 1/2NS 1000ml IV ONE ×2 (10:06→10:08)
[2017-02-23] MEDS ORDERED: Sterile Water Irrig 1000ml IRRIG ONE (10:08)
[2017-02-23] MEDS ORDERED: Tubing IV Secondary IV ONE (10:08)
[2017-02-23] MEDS ORDERED: NS 275ml ONE (10:08)
[2017-02-23 12:00] VITALS: BP 127/69
--- NOTE | 2017-02-23 12:46 | Diagnostic Imaging Report ---
Indication: Dyspnea Comparison: 02/22/17 A single view chest radiograph was obtained. Findings: Heart size is normal. Interstitial markings are prominent bilaterally. Bones are osteopenic. Aorta is ectatic and calcified. Impression: Mild interstitial edema is possible but findings appear unchanged. Please correlate clinically
[2017-02-23 13:05] VITALS: BP 127/69
[2017-02-23 15:57] VITALS: BP 141/68
--- NOTE | 2017-02-23 16:35 | Pulmonology Progress Note ---
Assessment/Plan Problems: (1) Sepsis (2) Dementia (3) Anemia (4) History of CVA (cerebrovascular accident) Assessment/Plan IV fluids IV antibiotics check cultures tolerating Gtube aspiration precaution check cultures venofer IV check stool for OB Subjective ROS Limited/Unobtainable: No Constitutional: Reports: no symptoms Respiratory: Reports: no symptoms Gastrointestinal/Abdominal: Reports: no symptoms Allergies: Coded Allergies: No Known Allergies (Unverified , 08/29/14) Objective Last 24 Hour Vital Signs Date Time Temp Pulse Resp B/P Pulse Ox O2 Delivery O2 Flow Rate FiO2 02/23/17 15:57 97.5 88 19 141/68 97 Room Air 02/23/17 13:05 98.7 93 20 127/69 97 Room Air 02/23/17 12:00 98.7 93 20 127/69 97 Room Air 02/23/17 09:15 98 Room Air 02/23/17 09:15 88 18 Room Air 02/23/17 09:15 Room Air 21 02/23/17 08:18 99.3 93 20 105/51 96 Room Air 02/23/17 04:43 97.0 101 21 95/53 96 Room Air 02/22/17 23:18 97 Room Air 02/22/17 23:18 Room Air 21 02/22/17 23:16 93 18 Room Air 02/22/17 20:00 98.1 102 19 106/68 96 Room Air Intake and Output 02/22/17 02/23/17 19:00 07:00 Intake Total 842.5 ml 470 ml Output Total 225 ml 475 ml Balance 617.5 ml -5 ml Intake Free Water 50 ml IV Total 492.5 ml 410 ml Tube Feeding 300 ml 60 ml Output Urine Total 225 ml 475 ml # Voids 1 # Bowel Movements 2 General Appearance: WD/WN HEENT: normocephalic, atraumatic Respiratory/Chest: chest wall non-tender, lungs clear Cardiovascular: normal peripheral pulses, normal rate Abdomen: normal bowel sounds, soft, non tender, no organomegaly, other - PEG Extremities: no cyanosis, no clubbing Skin: no rash Neurologic/Psychiatric: senior program manager II-XII grossly normal, no motor/sensory deficits Microbiology Date/Time Source Procedure Growth Status 02/21/17 10:50 Blood Blood Culture - Preliminary Staphylococcus Sp Coag Neg Resulted 02/21/17 10:20 Blood Blood Culture - Preliminary NO GROWTH AFTER 24 HOURS Resulted 02/22/17 03:00 Wound Gram Stain Pending Resulted 02/22/17 03:00 Wound Culture - Preliminary Gram Negative Bacillus 1 Staphylococcus Aureus Resulted 02/21/17 11:35 Nasal Nares MRSA Culture - Final NO METHICILLIN RESISTANT STAPH AUREUS... Complete 02/21/17 11:05 Urine,Clean Catch Urine Culture - Final Proteus Mirabilis Complete 02/21/17 11:35 Rectum VRE Culture - Final NO VANCOMYCIN RESISTANT ENTEROCOCCUS ... Complete Laboratory Tests 02/23/17 05:30: White Blood Count 8.5, Red Blood Count 2.68L, Hemoglobin 8.1L, Hematocrit 25.9L , Mean Corpuscular Volume 97, Mean Corpuscular Hemoglobin 30.1, Mean Corpuscular Hemoglobin Concent 31.2L, Red Cell Distribution Width 14.8, Platelet Count 266, Mean Platelet Volume 8.3, Neutrophils (%) (Auto) 64.1, Lymphocytes (%) (Auto) 21.2, Monocytes (%) (Auto) 7.4, Eosinophils (%) (Auto) 6.7H, Basophils (%) (Auto) 0.7, Sodium Level 140, Potassium Level 3.7, Chloride Level 104, Carbon Dioxide Level 24, Anion Gap 12, Blood Urea Nitrogen 20, Creatinine 0.8, Estimat Glomerular Filtration Rate , Glucose Level 174H, Calcium Level 8.6, Total Bilirubin 0.4, Aspartate Amino Transf (AST/SGOT) 19, Alanine Aminotransferase (ALT/SGPT) 12, Alkaline Phosphatase 178H, Pro-B-Type Natriuretic Peptide 1231H, Total Protein 7.3, Albumin 2.4L, Globulin 4.9, Albumin/Globulin Ratio 0.4L Current Medications Medications (Trade) Dose Ordered Sig/Yasmine Route PRN Reason Start Time Stop Time Status Last Admin Dose Admin Acetaminophen (Tylenol) 650 mg Q4H PRN GT Mild Pain/Temp > 100.5 02/22/17 21:00 03/24/17 20:59 Al Hydroxide/Mg Hydroxide (Mylanta II) 30 ml Q6H PRN ORAL dyspepsia 02/22/17 21:30 03/24/17 21:29 Albuterol/ Ipratropium (DuoNeb 0.5-3(2.5)mg/3ml) 3 ml Q6H PRN HHN Shortness of Breath 02/22/17 21:30 02/27/17 21:29 Dextrose (Dextrose 50%) STAT PRN IV Hypoglycemia 02/22/17 21:30 03/24/17 21:29 Dextrose/Sodium Chloride 1,000 ml @ 50 mls/hr Q20H IV 02/22/17 21:30 03/24/17 21:29 02/22/17 21:49 Diphenhydramine HCl (Benadryl) 25 mg Q6H PRN ORAL Itching/Pruritis 02/22/17 21:30 03/24/17 21:29 Heparin Sodium (Porcine) (Heparin 5000 units/ml) 5,000 units EVERY 12 HOURS SUBQ 02/22/17 22:00 03/24/17 21:59 02/23/17 08:25 Morphine Sulfate (Morphine Sulfate) 1 mg Q6H PRN IVP PAIN 4-10 02/22/17 21:30 03/01/17 21:29 Ondansetron HCl (Zofran) 4 mg Q6H PRN IVP Nausea & Vomiting 02/22/17 21:30 03/24/17 21:29 Piperacillin Sod/ Tazobactam Sod/ Sodium Chloride (Zosyn/Sodium Chloride) 110 ml @ 27.5 mls/hr Q8HR IVPB 02/22/17 22:00 03/01/17 21:59 02/23/17 13:28 Polyethylene Glycol (Miralax) 17 gm DAILYPRN PRN ORAL Constipation 02/22/17 21:30 03/24/17 21:29 Ranitidine HCl (Zantac) 150 mg DAILY GT 02/23/17 09:00 03/25/17 08:59 02/23/17 08:24 Zolpidem Tartrate (Ambien) 5 mg HSPRN PRN GT Insomnia 02/22/17 21:00 03/24/17 20:59 ANTONY NORRIS February 23, 2017 16:35
[2017-02-23] MEDS: D5 1/2NS 1,000 ML IV SCH (17:21)
[2017-02-23] MEDS ORDERED: Vancomycin 500 MG in D5W 110 ML IVPB SCH (18:00)
[2017-02-23 20:00] VITALS: BP 136/76
[2017-02-23] MEDS: Iron Sucrose 100 MG in NS 55 ML IVPB SCH (20:32)
[2017-02-24] VITALS: BP 141/78
[2017-02-24] MEDS: D5 1/2NS 1,000 ML IV SCH (03:35)
[2017-02-24 04:00] VITALS: BP 123/72
[2017-02-24] MEDS: Piperacillin/Tazobactam 3.375 GM in NS 110 ML IVPB SCH ×2 (04:58→14:00)
[2017-02-24 08:00] VITALS: BP 137/73
[2017-02-24] MEDS: Heparin 5000 units/ml inj SUBQ SCH ×2 (08:53→21:04)
[2017-02-24 12:00] VITALS: BP 109/67
[2017-02-24] MEDS ORDERED: NS 275ml ONE (16:01)
[2017-02-24] MEDS ORDERED: Tubing IV Secondary IV ONE (16:01)
[2017-02-24] MEDS ORDERED: D5 1/2NS 1000ml IV ONE (16:01)
[2017-02-24 16:14] VITALS: BP 139/68
--- NOTE | 2017-02-24 16:29 | Pulmonology Progress Note ---
Assessment/Plan Problems: (1) Sepsis (2) Dementia (3) Anemia (4) History of CVA (cerebrovascular accident) Assessment/Plan IV fluids IV antibiotics check cultures tolerating Gtube aspiration precaution check cultures venofer IV check stool for OB Subjective ROS Limited/Unobtainable: Yes Allergies: Coded Allergies: No Known Allergies (Unverified , 08/29/14) Objective Last 24 Hour Vital Signs Date Time Temp Pulse Resp B/P Pulse Ox O2 Delivery O2 Flow Rate FiO2 02/24/17 16:14 98.4 106 20 139/68 100 Nasal Cannula 2.0 02/24/17 12:00 98.1 97 22 109/67 98 Room Air 02/24/17 08:00 98.8 98 16 137/73 98 Nasal Cannula 2.0 02/24/17 07:56 92 18 Nasal Cannula 2.0 02/24/17 07:56 97 Nasal Cannula 2.0 02/24/17 07:56 Nasal Cannula 2.0 02/24/17 04:00 97.9 93 18 123/72 100 Nasal Cannula 2.0 02/24/17 00:00 97.5 96 18 141/78 97 Nasal Cannula 2.0 02/23/17 20:28 Nasal Cannula 2.0 02/23/17 20:28 98 Nasal Cannula 2.0 02/23/17 20:27 96 18 Nasal Cannula 2.0 02/23/17 20:00 97.5 91 18 136/76 99 Nasal Cannula 2.0 Intake and Output 02/23/17 02/24/17 19:00 07:00 Intake Total 795.0 ml 350 ml Output Total 400 ml 700 ml Balance 395.0 ml -350 ml Intake Free Water 60 ml IV Total 405.0 ml 350 ml Tube Feeding 330 ml Output Urine Total 400 ml 700 ml General Appearance: no acute distress HEENT: normocephalic, atraumatic Respiratory/Chest: chest wall non-tender, lungs clear Cardiovascular: normal peripheral pulses, normal rate Abdomen: normal bowel sounds, soft, non tender Extremities: no cyanosis Microbiology Date/Time Source Procedure Growth Status 02/22/17 17:10 Blood Blood Culture - Preliminary NO GROWTH AFTER 24 HOURS Resulted 02/22/17 17:00 Blood Blood Culture - Preliminary NO GROWTH AFTER 24 HOURS Resulted 02/22/17 03:00 Wound Gram Stain Pending Resulted 02/22/17 03:00 Wound Culture - Preliminary Proteus Mirabilis Staphylococcus Aureus Resulted Current Medications Medications (Trade) Dose Ordered Sig/Yasmine Route PRN Reason Start Time Stop Time Status Last Admin Dose Admin Acetaminophen (Tylenol) 650 mg Q4H PRN GT Mild Pain/Temp > 100.5 02/22/17 21:00 03/24/17 20:59 Al Hydroxide/Mg Hydroxide (Mylanta II) 30 ml Q6H PRN ORAL dyspepsia 02/22/17 21:30 03/24/17 21:29 Albuterol/ Ipratropium (DuoNeb 0.5-3(2.5)mg/3ml) 3 ml Q6H PRN HHN Shortness of Breath 02/22/17 21:30 02/27/17 21:29 Dextrose (Dextrose 50%) STAT PRN IV Hypoglycemia 02/22/17 21:30 03/24/17 21:29 Dextrose/Sodium Chloride 1,000 ml @ 50 mls/hr Q20H IV 02/22/17 21:30 03/24/17 21:29 02/24/17 03:35 Diphenhydramine HCl (Benadryl) 25 mg Q6H PRN ORAL Itching/Pruritis 02/22/17 21:30 03/24/17 21:29 Heparin Sodium (Porcine) (Heparin 5000 units/ml) 5,000 units EVERY 12 HOURS SUBQ 02/22/17 22:00 03/24/17 21:59 02/24/17 08:53 Iron Sucrose/ Sodium Chloride (Venofer/Sodium Chloride) 60 ml @ 240 mls/hr BEDTIME IVPB 02/23/17 21:00 02/27/17 21:14 02/23/17 20:32 Morphine Sulfate (Morphine Sulfate) 1 mg Q6H PRN IVP PAIN 4-10 02/22/17 21:30 03/01/17 21:29 Ondansetron HCl (Zofran) 4 mg Q6H PRN IVP Nausea & Vomiting 02/22/17 21:30 03/24/17 21:29 Piperacillin Sod/ Tazobactam Sod/ Sodium Chloride (Zosyn/Sodium Chloride) 110 ml @ 27.5 mls/hr Q8HR IVPB 02/22/17 22:00 03/01/17 21:59 02/24/17 14:00 Polyethylene Glycol (Miralax) 17 gm DAILYPRN PRN ORAL Constipation 02/22/17 21:30 03/24/17 21:29 Ranitidine HCl (Zantac) 150 mg DAILY GT 02/23/17 09:00 03/25/17 08:59 02/24/17 08:51 Zolpidem Tartrate 5 mg 5 mg HSPRN PRN GT Insomnia 02/22/17 21:00 03/24/17 20:59 ANTONY NORRIS February 24, 2017 16:29
--- NOTE | 2017-02-24 17:57 | Infectious Diseases Prog Note ---
Assessment/Plan Assessment/Plan ASSESSMENT: 86 y/o female with: // Recurrent UTI UCx : P mirabilis - h/o P.mirabilis, E.coli, ESBL(+) K.pneumoniae - h/o cysts, no stones CT 05/2015 // CONS in 1/2 sets : contaminant repeat BCx pending // Multiple superficial decubiti, not grossly infected // Leukocytosis, SP // Fever x1 - resolved // Dementia, h/o CVA // Dysphagia s/p PEG // Functional quadriplegia / bedbound / contracted // [facility] resident // MRSA colonized // NKDA // Full Code PLAN: - change Zosyn d# 4 / to Ancef d# 1/ , upon DC will change to Keflex 500 qid ( 02/23 SP IV vancomycin d# 3 ) - f/u cultures ( Bl ) - monitor CBC, temperatures - monitor BMP - monitor CXR - wound care - contact isolation Subjective Constitutional: Denies: anorexia, chills, drenching sweats, fatigue, fever, no symptoms, other Allergies: Coded Allergies: No Known Allergies (Unverified , 08/29/14) Objective Vital Signs Last 24 Hour Vital Signs Date Time Temp Pulse Resp B/P Pulse Ox O2 Delivery O2 Flow Rate FiO2 02/24/17 16:14 98.4 106 20 139/68 100 Nasal Cannula 2.0 02/24/17 12:00 98.1 97 22 109/67 98 Room Air 02/24/17 08:00 98.8 98 16 137/73 98 Nasal Cannula 2.0 02/24/17 07:56 92 18 Nasal Cannula 2.0 02/24/17 07:56 97 Nasal Cannula 2.0 02/24/17 07:56 Nasal Cannula 2.0 02/24/17 04:00 97.9 93 18 123/72 100 Nasal Cannula 2.0 02/24/17 00:00 97.5 96 18 141/78 97 Nasal Cannula 2.0 02/23/17 20:28 Nasal Cannula 2.0 02/23/17 20:28 98 Nasal Cannula 2.0 02/23/17 20:27 96 18 Nasal Cannula 2.0 02/23/17 20:00 97.5 91 18 136/76 99 Nasal Cannula 2.0 Height (Feet): 5 Height (Inches): 4.00 Weight (Pounds): 130 HEENT: anicteric Respiratory/Chest: normal breath sounds Cardiovascular: regularly irregular Abdomen: non distended Microbiology Date/Time Source Procedure Growth Status 02/22/17 17:10 Blood Blood Culture - Preliminary NO GROWTH AFTER 24 HOURS Resulted 02/22/17 17:00 Blood Blood Culture - Preliminary NO GROWTH AFTER 24 HOURS Resulted 02/22/17 03:00 Wound Gram Stain Pending Resulted 02/22/17 03:00 Wound Culture - Preliminary Proteus Mirabilis Staphylococcus Aureus Resulted Laboratory Tests Test 02/24/17 16:55 Vancomycin Level Trough 4.7 ug/mL (5.0-12.0) L Current Medications Medications (Trade) Dose Ordered Sig/Yasmine Route PRN Reason Start Time Stop Time Status Last Admin Dose Admin Acetaminophen (Tylenol) 650 mg Q4H PRN GT Mild Pain/Temp > 100.5 02/22/17 21:00 03/24/17 20:59 Al Hydroxide/Mg Hydroxide (Mylanta II) 30 ml Q6H PRN ORAL dyspepsia 02/22/17 21:30 03/24/17 21:29 Albuterol/ Ipratropium (DuoNeb 0.5-3(2.5)mg/3ml) 3 ml Q6H PRN HHN Shortness of Breath 02/22/17 21:30 02/27/17 21:29 Dextrose (Dextrose 50%) STAT PRN IV Hypoglycemia 02/22/17 21:30 03/24/17 21:29 Dextrose/Sodium Chloride 1,000 ml @ 50 mls/hr Q20H IV 02/22/17 21:30 03/24/17 21:29 02/24/17 03:35 Diphenhydramine HCl (Benadryl) 25 mg Q6H PRN ORAL Itching/Pruritis 02/22/17 21:30 03/24/17 21:29 Heparin Sodium (Porcine) (Heparin 5000 units/ml) 5,000 units EVERY 12 HOURS SUBQ 02/22/17 22:00 03/24/17 21:59 02/24/17 08:53 Iron Sucrose/ Sodium Chloride (Venofer/Sodium Chloride) 60 ml @ 240 mls/hr BEDTIME IVPB 02/23/17 21:00 02/27/17 21:14 02/23/17 20:32 Morphine Sulfate (Morphine Sulfate) 1 mg Q6H PRN IVP PAIN 4-10 02/22/17 21:30 03/01/17 21:29 Ondansetron HCl (Zofran) 4 mg Q6H PRN IVP Nausea & Vomiting 02/22/17 21:30 03/24/17 21:29 Piperacillin Sod/ Tazobactam Sod/ Sodium Chloride (Zosyn/Sodium Chloride) 110 ml @ 27.5 mls/hr Q8HR IVPB 02/22/17 22:00 03/01/17 21:59 02/24/17 14:00 Polyethylene Glycol (Miralax) 17 gm DAILYPRN PRN ORAL Constipation 02/22/17 21:30 03/24/17 21:29 Ranitidine HCl (Zantac) 150 mg DAILY GT 02/23/17 09:00 03/25/17 08:59 02/24/17 08:51 Zolpidem Tartrate 5 mg 5 mg HSPRN PRN GT Insomnia 02/22/17 21:00 03/24/17 20:59 WILL MURRELL M.D. February 24, 2017 17:57
[2017-02-24 20:00] VITALS: BP 131/66
[2017-02-24] MEDS ORDERED: ceFAZolin sod 1 GM in D5W 55 ML IVPB ONE (21:00)
[2017-02-24] MEDS: Iron Sucrose 100 MG in NS 55 ML IVPB SCH (21:13)
[2017-02-25] VITALS: BP 132/74
[2017-02-25 04:00] VITALS: BP 131/66
[2017-02-25] MEDS: D5 1/2NS 1,000 ML IV SCH ×2 (04:16→08:28)
[2017-02-25 08:16] VITALS: BP 146/101
[2017-02-25] MEDS: ceFAZolin 0.5gm in D5W 55ml IV SCH ×2 (08:28→21:05)
[2017-02-25] MEDS: Heparin 5000 units/ml inj SUBQ SCH ×2 (08:37→21:10)
--- NOTE | 2017-02-25 09:43 | Infectious Diseases Prog Note ---
Assessment/Plan Assessment/Plan ASSESSMENT: 86 y/o female with: // Recurrent UTI UCx : P mirabilis - h/o P.mirabilis, E.coli, ESBL(+) K.pneumoniae - h/o cysts, no stones CT 05/2015 // CONS in 1/2 sets : contaminant repeat BCx pending // Multiple superficial decubiti, not grossly infected // Leukocytosis, SP // Fever x1 - resolved // Dementia, h/o CVA // Dysphagia s/p PEG // Functional quadriplegia / bedbound / contracted // [facility] resident // MRSA colonized // NKDA // Full Code PLAN: - cont Ancef d# 2 / 4 , upon DC will change to Keflex 500 qid ( 02/24 SP Zosyn d# 4 ) ( 02/23 SP IV vancomycin d# 3 ) - f/u cultures ( Bl ) - monitor CBC, temperatures - monitor BMP - monitor CXR - wound care - contact isolation Subjective Constitutional: Denies: anorexia, chills, drenching sweats, fatigue, fever, no symptoms, other Allergies: Coded Allergies: No Known Allergies (Unverified , 08/29/14) Objective Vital Signs Last 24 Hour Vital Signs Date Time Temp Pulse Resp B/P Pulse Ox O2 Delivery O2 Flow Rate FiO2 02/25/17 08:24 Nasal Cannula 2.0 02/25/17 08:24 95 18 Nasal Cannula 2.0 02/25/17 08:24 98 Nasal Cannula 2.0 28 02/25/17 08:16 98.4 102 20 146/101 98 Nasal Cannula 2.0 02/25/17 04:00 97.7 96 18 131/66 95 Nasal Cannula 2.0 02/25/17 00:00 97.7 95 18 132/74 95 Nasal Cannula 2.0 02/24/17 20:00 97.3 104 16 131/66 94 Nasal Cannula 02/24/17 19:36 Nasal Cannula 2.0 02/24/17 19:36 98 Nasal Cannula 2.0 28 02/24/17 19:36 96 18 Nasal Cannula 2.0 02/24/17 16:14 98.4 106 20 139/68 100 Nasal Cannula 2.0 02/24/17 12:00 98.1 97 22 109/67 98 Room Air Height (Feet): 5 Height (Inches): 4.00 Weight (Pounds): 130 HEENT: atraumatic Respiratory/Chest: lungs clear Cardiovascular: regular rhythm Abdomen: non distended Microbiology Date/Time Source Procedure Growth Status 02/22/17 17:10 Blood Blood Culture - Preliminary NO GROWTH AFTER 48 HOURS Resulted 02/22/17 17:00 Blood Blood Culture - Preliminary NO GROWTH AFTER 48 HOURS Resulted Laboratory Tests Test 02/24/17 16:55 02/25/17 05:00 Vancomycin Level Trough 4.7 ug/mL (5.0-12.0) L Stool Occult Blood Pending Current Medications Medications (Trade) Dose Ordered Sig/Yasmine Route PRN Reason Start Time Stop Time Status Last Admin Dose Admin Acetaminophen (Tylenol) 650 mg Q4H PRN GT Mild Pain/Temp > 100.5 02/22/17 21:00 03/24/17 20:59 Al Hydroxide/Mg Hydroxide (Mylanta II) 30 ml Q6H PRN ORAL dyspepsia 02/22/17 21:30 03/24/17 21:29 Albuterol/ Ipratropium (DuoNeb 0.5-3(2.5)mg/3ml) 3 ml Q6H PRN HHN Shortness of Breath 02/22/17 21:30 02/27/17 21:29 Cefazolin Sodium/ Dextrose (Ancef/D5W) 55 ml @ 110 mls/hr Q12HR IV 02/25/17 09:00 03/04/17 08:59 02/25/17 08:28 Dextrose (Dextrose 50%) STAT PRN IV Hypoglycemia 02/22/17 21:30 03/24/17 21:29 Dextrose/Sodium Chloride (D5 0.45% NS) 1,000 ml @ 50 mls/hr Q20H IV 02/22/17 21:30 03/24/17 21:29 02/25/17 08:28 Diphenhydramine HCl (Benadryl) 25 mg Q6H PRN ORAL Itching/Pruritis 02/22/17 21:30 03/24/17 21:29 Heparin Sodium (Porcine) (Heparin 5000 units/ml) 5,000 units EVERY 12 HOURS SUBQ 02/22/17 22:00 03/24/17 21:59 02/25/17 08:37 Iron Sucrose 100 mg/Sodium Chloride 60 ml @ 240 mls/hr BEDTIME IVPB 02/23/17 21:00 02/27/17 21:14 02/24/17 21:13 Morphine Sulfate (Morphine Sulfate) 1 mg Q6H PRN IVP PAIN 4-10 02/22/17 21:30 03/01/17 21:29 Ondansetron HCl (Zofran) 4 mg Q6H PRN IVP Nausea & Vomiting 02/22/17 21:30 03/24/17 21:29 Polyethylene Glycol (Miralax) 17 gm DAILYPRN PRN ORAL Constipation 02/22/17 21:30 03/24/17 21:29 Ranitidine HCl (Zantac) 150 mg DAILY GT 02/23/17 09:00 03/25/17 08:59 02/25/17 08:28 Zolpidem Tartrate 5 mg 5 mg HSPRN PRN GT Insomnia 02/22/17 21:00 03/24/17 20:59 WILL MURRELL M.D. February 25, 2017 09:43
[2017-02-25 12:05] VITALS: BP 105/65
[2017-02-25] MEDS: NovoLOG Insulin Flexpen SUBQ SCH ×2 (12:30→17:51)
[2017-02-25] MEDS ORDERED: Sterile Water Irrig 1000ml IRRIG ONE (13:47)
[2017-02-25] MEDS ORDERED: D5 1/2NS 1000ml IV ONE ×2 (13:47→15:16)
[2017-02-25] MEDS ORDERED: Tubing IV Secondary IV ONE (15:16)
[2017-02-25 15:37] VITALS: BP 142/77
--- NOTE | 2017-02-25 19:26 | Pulmonology Progress Note ---
Assessment/Plan Problems: (1) Sepsis (2) Dementia (3) Anemia (4) History of CVA (cerebrovascular accident) Assessment/Plan IV fluids IV antibiotics check cultures tolerating Gtube aspiration precaution check cultures venofer IV check stool for OB labs in am dc planning Subjective ROS Limited/Unobtainable: No Allergies: Coded Allergies: No Known Allergies (Unverified , 08/29/14) Objective Last 24 Hour Vital Signs Date Time Temp Pulse Resp B/P Pulse Ox O2 Delivery O2 Flow Rate FiO2 02/25/17 15:37 97.7 94 20 142/77 100 Nasal Cannula 2.0 02/25/17 12:05 98.4 101 18 105/65 98 Room Air 02/25/17 08:24 Nasal Cannula 2.0 02/25/17 08:24 95 18 Nasal Cannula 2.0 02/25/17 08:24 98 Nasal Cannula 2.0 28 02/25/17 08:16 98.4 102 20 146/101 98 Nasal Cannula 2.0 02/25/17 04:00 97.7 96 18 131/66 95 Nasal Cannula 2.0 02/25/17 00:00 97.7 95 18 132/74 95 Nasal Cannula 2.0 02/24/17 20:00 97.3 104 16 131/66 94 Nasal Cannula 02/24/17 19:36 Nasal Cannula 2.0 02/24/17 19:36 98 Nasal Cannula 2.0 28 02/24/17 19:36 96 18 Nasal Cannula 2.0 Intake and Output 02/24/17 02/25/17 19:00 07:00 Intake Total 880 ml 1115 ml Output Total 650 ml Balance 230 ml 1115 ml Intake Free Water 90 ml 90 ml IV Total 400 ml 665 ml Tube Feeding 390 ml 360 ml Output Urine Total 650 ml # Bowel Movements 1 Objective General Appearance: WD/WN HEENT: normocephalic, atraumatic Respiratory/Chest: chest wall non-tender, lungs clear Cardiovascular: normal peripheral pulses, normal rate Abdomen: normal bowel sounds, soft, non tender, no organomegaly, other - PEG Extremities: no cyanosis, no clubbing Skin: no rash Laboratory Tests 02/25/17 05:00: Stool Occult Blood [Pending] Current Medications Medications (Trade) Dose Ordered Sig/Yasmine Route PRN Reason Start Time Stop Time Status Last Admin Dose Admin Acetaminophen (Tylenol) 650 mg Q4H PRN GT Mild Pain/Temp > 100.5 02/22/17 21:00 03/24/17 20:59 Al Hydroxide/Mg Hydroxide (Mylanta II) 30 ml Q6H PRN ORAL dyspepsia 02/22/17 21:30 03/24/17 21:29 Albuterol/ Ipratropium (DuoNeb 0.5-3(2.5)mg/3ml) 3 ml Q6H PRN HHN Shortness of Breath 02/22/17 21:30 02/27/17 21:29 Cefazolin Sodium/ Dextrose (Ancef/D5W) 55 ml @ 110 mls/hr Q12HR IV 02/25/17 09:00 03/04/17 08:59 02/25/17 08:28 Dextrose (Dextrose 50%) STAT PRN IV Hypoglycemia 02/25/17 10:15 03/27/17 10:14 Dextrose/Sodium Chloride (D5 0.45% NS) 1,000 ml @ 50 mls/hr Q20H IV 02/22/17 21:30 03/24/17 21:29 02/25/17 08:28 Diphenhydramine HCl (Benadryl) 25 mg Q6H PRN ORAL Itching/Pruritis 02/22/17 21:30 03/24/17 21:29 Heparin Sodium (Porcine) (Heparin 5000 units/ml) 5,000 units EVERY 12 HOURS SUBQ 02/22/17 22:00 03/24/17 21:59 02/25/17 08:37 Insulin Aspart (NovoLOG) Q6HR SUBQ 02/25/17 12:00 03/27/17 11:59 02/25/17 17:51 Iron Sucrose 100 mg/Sodium Chloride 60 ml @ 240 mls/hr BEDTIME IVPB 02/23/17 21:00 02/27/17 21:14 02/24/17 21:13 Morphine Sulfate (Morphine Sulfate) 1 mg Q6H PRN IVP PAIN 4-10 02/22/17 21:30 03/01/17 21:29 02/25/17 15:59 Ondansetron HCl (Zofran) 4 mg Q6H PRN IVP Nausea & Vomiting 02/22/17 21:30 03/24/17 21:29 Polyethylene Glycol (Miralax) 17 gm DAILYPRN PRN ORAL Constipation 02/22/17 21:30 03/24/17 21:29 Ranitidine HCl (Zantac) 150 mg DAILY GT 02/23/17 09:00 03/25/17 08:59 02/25/17 08:28 Zolpidem Tartrate 5 mg 5 mg HSPRN PRN GT Insomnia 02/22/17 21:00 03/24/17 20:59 ANTONY NORRIS February 25, 2017 19:26
[2017-02-25 20:00] VITALS: BP 125/66
[2017-02-25] MEDS: Iron Sucrose 100 MG in NS 55 ML IVPB SCH (21:06)
[2017-02-26] VITALS: BP 138/87
[2017-02-26] MEDS: NovoLOG Insulin Flexpen SUBQ SCH ×3 (00:44→12:11)
[2017-02-26 04:00] VITALS: BP 127/70
[2017-02-26] MEDS: D5 1/2NS 1,000 ML IV SCH (06:33)
[2017-02-26 07:19] LABS: BASOPHILS % (AUTO) 0.6 % (0.0-2.0); EOSINOPHILS % (AUTO) 8.2 % (0.0-3.0); LYMPHOCYTES % (AUTO) 25.8 % (20.0-45.0); MEAN CORPUSCULAR HGB CONC 31.4 G/DL (32.0-36.0); MEAN CORPUSCULAR VOLUME 96 FL (80-99); MEAN PLATELET VOLUME 7.8 FL (6.5-10.1); MONOCYTES % (AUTO) 8.8 % (1.0-10.0); NEUTROPHILS % (AUTO) 56.7 % (45.0-75.0); PLATELET COUNT 325 K/UL (150-450); RED BLOOD COUNT 2.86 M/UL (4.20-5.40); RED CELL DISTRIBUTION WIDTH 14.9 % (11.6-14.8)
[2017-02-26 07:32] LABS: ALANINE AMINOTRANSFERASE 11 U/L (3-33); ALBUMIN/GLOBULIN RATIO 0.5 (1.0-2.7); ANION GAP 12 (5-15); ASPARTATE AMINO TRANSFERASE 17 U/L (5-40); CALCIUM 9.1 mg/dL (8.6-10.2); CARBON DIOXIDE 28 mEQ/L (20-30); CHLORIDE 99 mEQ/L (98-107); CREATININE 0.6 mg/dL (0.5-0.9); HEMOLYSIS 0; MAGNESIUM 2.1 mg/dL (1.7-2.5); PHOSPHORUS 3.2 mg/dL (2.5-4.8); POTASSIUM 3.6 mEQ/L (3.4-4.9); SODIUM 139 mEQ/L (135-145); TOTAL PROTEIN 7.7 g/dL (6.6-8.7)
[2017-02-26 07:55] LABS: PROTHROMBIN TIME 10.1 SEC (9.30-11.50)
[2017-02-26] MEDS: ceFAZolin 0.5gm in D5W 55ml IV SCH (08:12)
[2017-02-26] MEDS: Heparin 5000 units/ml inj SUBQ SCH (08:17)
[2017-02-26 08:41] VITALS: BP 130/77
[2017-02-26 12:03] VITALS: BP 141/71
[2017-02-26] MEDS ORDERED: D5 1/2NS 1000ml IV ONE (13:14)
--- NOTE | 2017-02-26 13:19 | Pulmonology Progress Note ---
Assessment/Plan Problems: (1) Sepsis (2) Dementia (3) Anemia (4) History of CVA (cerebrovascular accident) Assessment/Plan tolerating Gtube aspiration precaution check cultures venofer IV dc planning to nursign home today Subjective ROS Limited/Unobtainable: No Allergies: Coded Allergies: No Known Allergies (Unverified , 08/29/14) Objective Last 24 Hour Vital Signs Date Time Temp Pulse Resp B/P Pulse Ox O2 Delivery O2 Flow Rate FiO2 02/26/17 12:03 97.7 95 22 141/71 98 Room Air 02/26/17 11:55 92 18 Nasal Cannula 2.0 28 02/26/17 11:55 Nasal Cannula 2.0 28 02/26/17 11:55 98 Nasal Cannula 2.0 28 02/26/17 08:41 97.2 101 22 130/77 98 Room Air 02/26/17 04:00 97.5 94 22 127/70 99 Nasal Cannula 2.0 02/26/17 00:00 97.7 103 22 138/87 97 Nasal Cannula 2.0 02/25/17 20:00 97.7 99 22 125/66 98 Room Air 02/25/17 19:43 99 Nasal Cannula 2.0 28 02/25/17 19:43 93 18 Nasal Cannula 2.0 28 02/25/17 19:43 Nasal Cannula 2.0 28 02/25/17 15:37 97.7 94 20 142/77 100 Nasal Cannula 2.0 Intake and Output 02/25/17 02/26/17 19:00 07:00 Intake Total 1105 ml 1325 ml Output Total 1300 ml 1100 ml Balance -195 ml 225 ml Intake Free Water 90 ml 90 ml IV Total 555 ml 665 ml Tube Feeding 460 ml 570 ml Output Urine Total 1300 ml 1100 ml Objective General Appearance: WD/WN HEENT: normocephalic, atraumatic Respiratory/Chest: chest wall non-tender, lungs clear Cardiovascular: normal peripheral pulses, normal rate Abdomen: normal bowel sounds, soft, non tender, no organomegaly, other - PEG Extremities: no cyanosis, no clubbing Skin: no rash Laboratory Tests 02/26/17 04:50: White Blood Count 7.0, Red Blood Count 2.86L, Hemoglobin 8.6L, Hematocrit 27.3L , Mean Corpuscular Volume 96, Mean Corpuscular Hemoglobin 30.0, Mean Corpuscular Hemoglobin Concent 31.4L, Red Cell Distribution Width 14.9H, Platelet Count 325, Mean Platelet Volume 7.8, Neutrophils (%) (Auto) 56.7, Lymphocytes (%) (Auto) 25.8, Monocytes (%) (Auto) 8.8, Eosinophils (%) (Auto) 8.2H, Basophils (%) (Auto) 0.6, Prothrombin Time 10.1, Prothromb Time International Ratio 1.0, Activated Partial Thromboplast Time 35H, Sodium Level 139, Potassium Level 3.6, Chloride Level 99, Carbon Dioxide Level 28, Anion Gap 12, Blood Urea Nitrogen 11, Creatinine 0.6, Estimat Glomerular Filtration Rate , Glucose Level 131H, Calcium Level 9.1, Phosphorus Level 3.2, Magnesium Level 2.1, Total Bilirubin 0.3, Aspartate Amino Transf (AST/SGOT) 17, Alanine Aminotransferase (ALT/SGPT) 11, Alkaline Phosphatase 185H, Total Protein 7.7, Albumin 2.6L, Globulin 5.1, Albumin/Globulin Ratio 0.5L Current Medications Medications (Trade) Dose Ordered Sig/Yasmine Route PRN Reason Start Time Stop Time Status Last Admin Dose Admin Acetaminophen (Tylenol) 650 mg Q4H PRN GT Mild Pain/Temp > 100.5 02/22/17 21:00 03/24/17 20:59 Al Hydroxide/Mg Hydroxide (Mylanta II) 30 ml Q6H PRN ORAL dyspepsia 02/22/17 21:30 03/24/17 21:29 Albuterol/ Ipratropium (DuoNeb 0.5-3(2.5)mg/3ml) 3 ml Q6H PRN HHN Shortness of Breath 02/22/17 21:30 02/27/17 21:29 Cefazolin Sodium/ Dextrose (Ancef/D5W) 55 ml @ 110 mls/hr Q12HR IV 02/25/17 09:00 03/04/17 08:59 02/26/17 08:12 Dextrose (Dextrose 50%) STAT PRN IV Hypoglycemia 02/25/17 10:15 03/27/17 10:14 Dextrose/Sodium Chloride (D5 0.45% NS) 1,000 ml @ 50 mls/hr Q20H IV 02/22/17 21:30 03/24/17 21:29 02/26/17 06:33 Diphenhydramine HCl (Benadryl) 25 mg Q6H PRN ORAL Itching/Pruritis 02/22/17 21:30 03/24/17 21:29 Heparin Sodium (Porcine) (Heparin 5000 units/ml) 5,000 units EVERY 12 HOURS SUBQ 02/22/17 22:00 03/24/17 21:59 02/26/17 08:17 Insulin Aspart (NovoLOG) Q6HR SUBQ 02/25/17 12:00 03/27/17 11:59 02/26/17 12:11 Iron Sucrose 100 mg/Sodium Chloride 60 ml @ 240 mls/hr BEDTIME IVPB 02/23/17 21:00 02/27/17 21:14 02/25/17 21:06 Morphine Sulfate (Morphine Sulfate) 1 mg Q6H PRN IVP PAIN 4-10 02/22/17 21:30 03/01/17 21:29 02/25/17 15:59 Ondansetron HCl (Zofran) 4 mg Q6H PRN IVP Nausea & Vomiting 02/22/17 21:30 03/24/17 21:29 Polyethylene Glycol (Miralax) 17 gm DAILYPRN PRN ORAL Constipation 02/22/17 21:30 03/24/17 21:29 Ranitidine HCl (Zantac) 150 mg DAILY GT 02/23/17 09:00 03/25/17 08:59 02/26/17 08:12 Zolpidem Tartrate 5 mg 5 mg HSPRN PRN GT Insomnia 02/22/17 21:00 03/24/17 20:59 ANTONY NORRIS February 26, 2017 13:19
--- NOTE | 2017-03-01 11:01 | Discharge Summary ---
Discharge Summary Hospital Course Date of Admission Feb 21, 2017 at 15:58 Date of Discharge February 26, 2017 at 13:15 Admitting Diagnosis Shortness of Breath, Pneumonia HPI Alex Cm is a 86 year old female who was admitted on Feb 21, 2017 at 15:58 for Shortness Of Breath,Pneumonia Hospital Course dc summary #[id number] Discharge Medications New Medications: Cephalexin* (Keflex*) 500 Mg Capsule 500 MG ORAL EVERY 6 HOURS, #8 CAP Continued Medications: Ascorbic Acid* (Vitamin C*) 500 Mg Tablet 500 MG GT DAILY, #30 TAB 0 Refills Docusate Sodium* (Docusate Sodium*) 100 Mg Capsule 10 MG ORAL THREE TIMES A DAY, CAP Enteral Nutrition Formula (Twocal Hn Liquid) 240 Ml Liqd 65 ML PO, ML Heparin Sod (Porcine) (Heparin Sodium*) 5 000/1 Ml Vial 5000 UNITS SUBQ EVERY 12 HOURS, VIAL Polyethylene Glycol 3350* (Miralax*) 17 Gm Powd.pack 17 GM ORAL DAILY, PACKET Discharge Condition Upon Discharge: stable Discharge Disposition Patient was discharged to SNF/Subacute Facility(03) Discharge Diagnoses: German (Saeid)Valentina NP March 01, 2017 11:01
--- NOTE | 2017-03-02 03:19 | Discharge Summary 2 SIG ---
DATE OF ADMISSION: 02/21/2017 DATE OF DISCHARGE: 02/26/2017 The patient was admitted under Dr. Rodriguez. REASON FOR ADMISSION: The patient is an 86-year-old female with a history of CVA, dysphagia, G-tube, dementia, and hypertension, presented to emergency room for ambulation from the [facility] she [facility] for cough and congestive symptoms for one day. The patient also noted to have a low oxygen saturation. No reported chest pain. No reported nausea or vomiting. Workup in the emergency department revealed low-grade fever by rectal temperature. O2 sat was 90% on the room air. The patient was placed on supplemental oxygen via nasal cannula. Noted mild leukocytosis and anemia. Urinalysis with evidence of urinary tract infection. Chest x-ray with a possible left-sided infiltrate. The patient was admitted for further management. ADMITTING DIAGNOSES: Includes, 1. Hypoxemia. 2. Urinary tract infection. 3. Possible pneumonia. 4. Aspiration risk. 5. Dementia. 6. Dysphagia, gastrostomy tube. 7. History of cerebrovascular accident. 8. Hypertension. 9. Anemia. HOSPITAL STAY: The patient was admitted. Supplemental oxygen and pulmonary toilet provided as needed. The patient was started on empiric antibiotics. ID consult was requested. Blood culture, one out of four with Staph coag-negative, likely contaminant as per ID. Repeated blood culture negative. Urine culture revealed Proteus. Followup chest x-ray revealed no evidence of pneumonia. Strict aspiration precautions were maintained. The patient was on G-tube feedings with head of bed elevated at all time. The patient is able to tolerate tube feeding. Venous duplex of bilateral lower extremity was negative. Anemia workup revealed iron-deficiency anemia. The patient was on Venofer while in the hospital. Stool OB was negative. Troponin was negative. Lipid panel was stable. Wound care nurse seen and evaluated the patient. The patient had an unstageable sacral decubitus, right lateral foot decubitus, and left trochanter decubitus. Wound care was provided as per wound care nurse recommendation. DVT prophylaxis provided. Per ID recommendation, the patient to be continued on Keflex for additional two days while in the [facility] facility upon discharge. The patient was stable for discharge. DISCHARGE DIAGNOSES: Includes, 1. Hypoxemia, resolved. 2. Urinary tract infection/Proteus. 3. Aspiration risk. 4. Dysphagia, gastrostomy tube. 5. History of cerebrovascular accident. 6. Aspiration risk. 7. Functional quadriplegia. 8. Iron-deficiency anemia. 9. Sacral, right lateral foot, and left trochanter decubitus ulcer present on admission. DISCHARGE MEDICATIONS: See medication reconciliation list. DISCHARGE INSTRUCTIONS: The patient was discharged to [facility] facility. FOLLOWUP: Follow up with medical doctor at the facility. Maryann Rodriguez M.D. I have been assigned to dictate discharge summary on this account and I was not involved in the patient's management. Valentina Faulknermiddletown state hospitalCatherine NGeorgettePGeorgette DR: MAXIMO JOB#: [id number] CC:
== END 2017-02-26 13:15 | DRG 720 ==
LOC: EDBD 10:12 → EMR 10:30 → EDBEDREQ 10:43 → 2E 15:58 → 4W 02-22 20:12
DX: A41.9 Sepsis, unspecified organism (principal); L89.220 Pressure ulcer of left hip, unstageable; L89.150 Pressure ulcer of sacral region, unstageable; J18.9 Pneumonia, unspecified organism; R53.2 Functional quadriplegia; N39.0 Urinary tract infection, site not specified; F01.50 Vascular dementia, unspecified severity, without behavioral disturbance, psychotic disturbance, mood disturbance, and anxiety; R13.10 Dysphagia, unspecified; D64.9 Anemia, unspecified; Z43.1 Encounter for attention to gastrostomy; R09.02 Hypoxemia; I10 Essential (primary) hypertension; Z22.322 Carrier or suspected carrier of Methicillin resistant Staphylococcus aureus; I69.319 Unspecified symptoms and signs involving cognitive functions following cerebral infarction; B96.4 Proteus (mirabilis) (morganii) as the cause of diseases classified elsewhere
CPT/HCPCS: 36415; 71010; 80048; 80053; 80061; 80202; 81003; 82270; 82378; 82550; 82553; 82607; 82746; 82962; 83540; 83550; 83605; 83615; 83735; 83880; 84100; 84443; 84484; 85007; 85025; 85044; 85060; 85610; 85651; 85730; 87040; 87070; 87081; 87086; 87181; 87205; 93005; 93970; 94664; 94760; 97802; J1815

== ENCOUNTER 2017-03-01 08:21 | Emergency (ER) | payer MEDICAID ==
[~2017-03-01] VITALS: Ht 152.4 cm; Wt 52.2 kg
[~2017-03-01 08:21] MED LIST changes: +DOCUSATE SODIU100 MG GT; +MULTIVITAMINS1 EAC8 GT; +VITAMIN C500 M1 GT
--- NOTE | 2017-03-01 09:16 | Emergency Room Report ---
History of Present Illness General Chief Complaint: Malfunctioning Gastric Tube Source: Patient, Medical Record, EMS Present Illness HPI This patient presents from a nursing home facility for a dislodged G-tube. There are no other complaints. Apparently, the nursing home facility reports and they found that the G-tube had been dislodged this morning around midnight. Allergies: Coded Allergies: No Known Allergies (Unverified , 08/29/14) Patient History Past Medical History: see triage record, HTN, ID, CAD, asthma, COPD, pneumonia , CVA/TIA, dementia, psych hx, renal disease Past Surgical History: other - G-tube Social History: Denies: alcohol use, drug use, smoking Last Menstrual Period: na Now: No Reviewed Nursing Documentation: PMH: Agreed, PSxH: Agreed Nursing Documentation-PMH Past Medical History: No History, Except For Hx Cardiac Problems: Yes Hx Hypertension: Yes Hx Pacemaker: No Hx Asthma: No Hx COPD: Yes Hx Diabetes: Yes Hx Cancer: No Hx Gastrointestinal Problems: Yes - G-tube on upper quadrant Hx Dialysis: No Hx Neurological Problems: Yes Hx Cerebrovascular Accident: Yes Hx Transient Ischemic Attacks: Yes Hx Dementia: Yes Hx Seizures: No Hx Syncope: Yes Hx Dysphasia: Yes Review of Systems All Other Systems: limited Physical Exam Vital Signs Date Time Temp Pulse Resp B/P Pulse Ox O2 Delivery O2 Flow Rate FiO2 03/01/17 08:13 98.1 109 18 131/68 98 Room Air Sp02 EP Interpretation: reviewed, normal General Appearance: no apparent distress, alert, GCS 15, non-toxic Head: normocephalic, atraumatic Eyes: bilateral eye normal inspection ENT: normal pharynx, no angioedema Neck: full range of motion Respiratory: no respiratory distress, no retraction, no accessory muscle use Cardiovascular #1: tachycardia Gastrointestinal: normal bowel sounds, non tender, soft, non-distended, no guarding, no rebound, other - G-tube site without G-tube in place. Rectal: deferred Musculoskeletal: other - At baseline Neurologic: alert, responsive, sensory intact Psychiatric: mood/affect normal Skin: warm/dry Procedures Additional Procedure Procedure Narrative An 18 Amharic G-tube was re-placed in a standard manner without complication or incident. Placement was confirmed with a contrast KUB. Medical Decision Making Diagnostic Impression: Primary Impression: Dislodged gastrostomy tube ER Course This patient presents for G-tube replacement. The G-tube was replaced in the typical manner without complication or incident. A KUB was obtained which showed Gastrografin consistent with appropriate placement in the stomach. The patient was returned to the nursing home facility. Other X-Ray Diagnostic Results Other X-Ray Diagnostic Results : X-Ray Ordered: KUB with gadolidium Findings: other Number of Views: 1 Other Impression Location of contrast consistent with G-tube in the stomach. Last Vital Signs Date Time Temp Pulse Resp B/P Pulse Ox O2 Delivery O2 Flow Rate FiO2 03/01/17 08:13 98.1 109 18 131/68 98 Room Air Disposition: HOME, SELF-CARE Condition: Improved Referrals: ANTONY NORRIS (PCP) Patient Instructions: Gastrostomy Tube Home Guide, Adult EMILY ESPINO D.O. March 01, 2017 09:16
[2017-03-01 10:26] VITALS: BP 120/70
--- NOTE | 2017-03-01 10:39 | Diagnostic Imaging Report ---
Indications: Percutaneous gastrostomy tube replacement Technique: Portable AP view of the abdomen with administration of water soluble contrast through gastrostomy tube Findings: Comparison: 09/16/16 Percutaneous gastrostomy tube is present in the stomach. Injected contrast opacifies lumens of the tube, stomach both proximal and distal to the tube. All are normal in caliber. No extraluminal contrast extravasation is demonstrated. Abdomen and pelvis incompletely imaged. Visualized portions of bowel gas pattern unremarkable. Degenerative changes are present in the lumbar spine. IMPRESSION: Percutaneous gastrostomy tube in stomach. No evidence of obstruction or extravasation. No other evidence of acute abdominopelvic disease, with limitation as described. Chronic changes as described.
[2017-03-01] MEDS ORDERED: CEPHALEXIN500 MG ORAL (10:51)
[2017-03-01 10:56] VITALS: BP 125/74
== END 2017-03-01 11:09 ==
LOC: EDBD 08:21 → EMR 08:51
DX: K94.29 Other complications of gastrostomy (principal); I10 Essential (primary) hypertension; I25.10 Atherosclerotic heart disease of native coronary artery without angina pectoris; I25.2 Old myocardial infarction; J45.909 Unspecified asthma, uncomplicated; J44.9 Chronic obstructive pulmonary disease, unspecified; Z86.73 Personal history of transient ischemic attack (TIA), and cerebral infarction without residual deficits; F03.90 Unspecified dementia, unspecified severity, without behavioral disturbance, psychotic disturbance, mood disturbance, and anxiety; E11.9 Type 2 diabetes mellitus without complications; N28.9 Disorder of kidney and ureter, unspecified
CPT/HCPCS: 43760; 74000; 99283; Q9963

== ENCOUNTER 2017-10-18 05:32 | Emergency (ER) | payer MEDICAID ==
[~2017-10-18] VITALS: Ht 162.6 cm; Wt 63.5 kg
[~2017-10-18 05:32] MED LIST changes: +CEPHALEXIN500 MG ORAL
[2017-10-18] MEDS ORDERED: Neosporin Oint Ud Pkt TOP ONE (05:45)
[2017-10-18] MEDS ORDERED: Tetanus/Diptheria/Pertussis Vaccine 0.5ml Syr IM ONE (05:45)
--- NOTE | 2017-10-18 05:54 | Emergency Room Report ---
History of Present Illness General Chief Complaint: Skin Rash/Abscess Source: Patient (Aram Schneider M.D.) Present Illness HPI Patient presents with discoloration of her left forearm and hand and also a scrape on the left shoulder. The discoloration was noted on October 15. She is bed ridden and there is no history of trauma noted. The abrasion or lesion on her left shoulder was noted on the . The patient is Divehi speaking and has Alzheimer's. She does not complain of pain. She is not on blood thinners. No apparent fevers, vomiting. H/O chronic renal disease and prior stroke. No further history is available (Aram Schneider M.D.) Allergies: Coded Allergies: No Known Allergies (Unverified , 08/29/14) Patient History Limited by: medical condition Past Medical History: see triage record, old chart reviewed Past Surgical History: other - g tube Social History: Denies: smoking, alcohol use, drug use Social History Narrative SNF Last Menstrual Period: n/a Now: No Reviewed Nursing Documentation: PMH: Agreed, PSxH: Agreed (Aram Schneider M.D.) Nursing Documentation-PMH Past Medical History: No History, Except For Hx Cardiac Problems: Yes - Anemia, PVD Hx Hypertension: No - Hypotension, PNA Hx Pacemaker: No Hx Asthma: No Hx COPD: Yes Hx Diabetes: Yes Hx Cancer: No Hx Gastrointestinal Problems: Yes - GERD, Esophagitis, G-tube, Dysphagia Hx Dialysis: No - AKF, CKD Hx Neurological Problems: Yes Hx Cerebrovascular Accident: Yes - TIA, Cerebral Infarction without residual Hx Transient Ischemic Attacks: Yes Hx Dementia: Yes Hx Seizures: No Hx Syncope: Yes Hx Dysphasia: Yes (Aram Schneider M.D.) Review of Systems All Other Systems: limited (Aram Schneider M.D.) Physical Exam Vital Signs Date Time Temp Pulse Resp B/P (MAP) Pulse Ox O2 Delivery O2 Flow Rate FiO2 10/18/17 05:33 98.2 82 15 115/67 99 Room Air Sp02 EP Interpretation: reviewed, normal General Appearance: no apparent distress, alert, Chronically Ill Head: normocephalic Eyes: bilateral eye normal inspection, bilateral eye PERRL ENT: moist mucus membranes Neck: supple Respiratory: lungs clear, normal breath sounds Cardiovascular #1: regular rate, rhythm Cardiovascular #2: 2+ radial (R) Gastrointestinal: normal inspection, normal bowel sounds, non tender, no mass, non-distended Musculoskeletal: back normal, decreased range of motion, swelling - dorsum of L hand extends to wrist, no response to palpation (no tenderness), no deformity Neurologic: alert - looks, not speak, sensory intact, other - moves upper extremity, Psychiatric: depressed affect Skin: warm/dry, other - decubitus feet, also abrasion or , hematoma - and ecchymoses (Aram Schneider M.D.) Medical Decision Making Diagnostic Impression: Primary Impression: Metacarpal bone fracture Qualified Codes: S62.351A - Nondisplaced fracture of shaft of second metacarpal bone, left hand, initial encounter for closed fracture Additional Impressions: UTI (lower urinary tract infection) History of CVA (cerebrovascular accident) ER Course Patient presents with discoloration of her left hand and forearm. She also has a scrape or decubitus on her left shoulder. History is extremely sparse. We need to exclude fractures. Also need to exclude coagulopathy - EKG and labs ordered. Arterial flow seems adequate. The patient will receive tetanus and neosporin. Not complaining or reacting with pain. There is a smell like UTI and UA ordered. EKG without injury. Patient signed out to Dr. Coker before x-rays, labs obtained. (Aram Schneider M.D.) ER Course The patient is a 87-year-old female who presented after increased left upper extremity hand rash. Patient was noted to have some discoloration to her left hand. See Dr. Schneider history of present illness. X-ray imaging of the left hand read by radiology three-view showed a metacarpal fracture. A left elbow x- ray interpreted by radiology three-view showed osteopenia without evident fracture. CT the head was subsequently ordered due to patient's unknown history and possible recent trauma. CT the head showed multiple areas of atrophic changes without evidence of intracranial hemorrhage or fracture. The patient was placed in a splint. The [facility] for urinary infection. As she was given IV Rocephin in the emergency department. (Ben Coker) EKG Diagnostic Results Rate: normal Rhythm: NSR ST Segments: no acute changes (Aram Schneider M.D.) Rhythm Strip Diag. Results EP Interpretation: yes Rhythm: NSR, no PVC's, no ectopy (Aram Schneider M.D.) Last Vital Signs Date Time Temp Pulse Resp B/P (MAP) Pulse Ox O2 Delivery O2 Flow Rate FiO2 10/18/17 10:51 72 16 127/48 99 Room Air 10/18/17 05:55 98.2 Status: improved (Aram Schneider M.D.) Status: improved (Ben Coker) Disposition: XFER SNF Condition: Stable Scripts Cephalexin* (CEPHALEXIN*) 250 Mg/5 Ml Susp.recon 10 ML ORAL FOUR TIMES A DAY, #100 ML 0 Refills Prov: Ben Coker 10/18/17 Aram Schneider M.D. Oct 18, 2017 05:54 Ben Coker Oct 18, 2017 09:32
[2017-10-18 05:55] VITALS: BP 115/67
[2017-10-18 06:56] LABS: BASOPHILS % (AUTO) 0.9 % (0.0-2.0); EOSINOPHILS % (AUTO) 5.2 % (0.0-3.0); LYMPHOCYTES % (AUTO) 32.6 % (20.0-45.0); MEAN CORPUSCULAR HEMOGLOBIN 33.7 PG (27.0-31.0); MEAN CORPUSCULAR HGB CONC 32.5 G/DL (32.0-36.0); MEAN CORPUSCULAR VOLUME 104 FL (80-99); MEAN PLATELET VOLUME 8.7 FL (6.5-10.1); MONOCYTES % (AUTO) 9.3 % (1.0-10.0); NEUTROPHILS % (AUTO) 52.1 % (45.0-75.0); PLATELET COUNT 207 K/UL (150-450); RED BLOOD COUNT 4.21 M/UL (4.20-5.40); RED CELL DISTRIBUTION WIDTH 12.3 % (11.6-14.8); WHITE BLOOD COUNT 5.4 K/UL (4.8-10.8)
[2017-10-18 07:03] LABS: APPEARANCE,URINE SLIGHTLY CLOUDY; KETONES,URINE NEGATIVE (NEGATIVE); LEUKOCYTE ESTERASE ,URINE 3+ (NEGATIVE); NITRITE,URINE NEGATIVE (NEGATIVE); PH,URINE 8 (4.5-8.0); PROTEIN,URINE 1+ (NEGATIVE); UROBILINOGEN,URINE 4 MG/DL (0.0-1.0)
[2017-10-18 07:07] LABS: INR 0.9 (0.9-1.1); PROTHROMBIN TIME 9.7 SEC (9.30-11.50)
[2017-10-18 07:19] LABS: BACTERIA,URINE FEW /HPF; SQUAMOUS EPITHELIAL CELL,UR FEW /LPF (NONE/OCC); WBC,URINE 60-80 /HPF (0 - 2)
[2017-10-18 07:20] LABS: ANION GAP 7 mmol/L (5-15); CALCIUM 8.5 MG/DL (8.5-10.1); CARBON DIOXIDE 31 MMOL/L (21-32); CHLORIDE 103 MMOL/L (98-107); CREATININE 1.1 MG/DL (0.55-1.30); POTASSIUM 4.5 MMOL/L (3.5-5.1); SODIUM 141 MMOL/L (136-145)
[2017-10-18] MEDS ORDERED: cefTRIAXone 1 GM in NS 55 ML IVPB ONE (07:30)
[2017-10-18 07:40] LABS: ALANINE AMINOTRANSFERASE 36 U/L (12-78); ALBUMIN/GLOBULIN RATIO 0.7 (1.0-2.7); ASPARTATE AMINO TRANSFERASE 31 U/L (15-37); CKMB 0.9 NG/ML (0.0-3.6); CRP QUANT 2.1 mg/dL (0.00-0.90); TOTAL PROTEIN 9.4 G/DL (6.4-8.2)
[2017-10-18] MEDS ORDERED: CEPHALEXIN250 MG/5 M ORAL (09:04)
--- NOTE | 2017-10-18 09:25 | Diagnostic Imaging Report ---
Indication: Reason For Exam: TRAUMA Technique: XRAY Elbow Min 3v L Comparison: None. Findings: The osseous structures are intact. There is no fracture or destruction. The visualized joints are normal. The soft tissues are unremarkable. The osseous structures are osteopenic. Impression: Osteopenia. Otherwise negative left elbow.
--- NOTE | 2017-10-18 09:27 | Diagnostic Imaging Report ---
Indication: Pain Technique: Left hand, 3 views Comparison: None. Findings: The bones are osteopenic. There is fracture of the second metacarpal. The remainder the bones are intact. The joints are normal. Impression: Fracture of the second metacarpal. Osteopenia.
--- NOTE | 2017-10-18 09:30 | Diagnostic Imaging Report ---
Indication: Soreness of breath Technique: XRAY Chest 1v. Comparison: 02/23/2017 Findings: The cardiomediastinal silhouette is stable. There are no acute infiltrates. Aorta is calcified. Impression: No acute abnormality. .
--- NOTE | 2017-10-18 10:14 | Diagnostic Imaging Report ---
Indication: Reason For Exam: PAIN Technique: Continuous helical CT scanning of the head was performed without intravenous contrast material. Axial and coronal 5 mm sections were generated. Dose: Total Dose Length Product - DLP [address] Dose Index - CTDIvol(s) 70.38 mGy. Automated exposure control was utilized for dose reduction. Comparison: 01/02/2015 Findings: There is prominence of cortical sulci and the ventricular system. Periventricular low density is present. There is no shift of midline structures. No abnormal extra-axial fluid collections are noted. There is no evidence of intracerebral bleeding. No other abnormal high or low density areas are noted within the brain. Impression: Moderate atrophy and chronic small vessel white matter ischemic change. No acute abnormality. The CT scanner at [facility] is accredited by the [employer] and the scans are performed using protocols designed to limit radiation exposure to as low as reasonably achievable to attain images of sufficient resolution adequate for diagnostic evaluation.
[2017-10-18 10:51] VITALS: BP 127/48
== END 2017-10-18 10:54 ==
LOC: EDBD 05:32 → EMR 05:53
DX: S62.351A Nondisplaced fracture of shaft of second metacarpal bone, left hand, initial encounter for closed fracture (principal); S40.212A Abrasion of left shoulder, initial encounter; N39.0 Urinary tract infection, site not specified; Z86.73 Personal history of transient ischemic attack (TIA), and cerebral infarction without residual deficits; G30.9 Alzheimer's disease, unspecified; F02.80 Dementia in other diseases classified elsewhere, unspecified severity, without behavioral disturbance, psychotic disturbance, mood disturbance, and anxiety; E11.22 Type 2 diabetes mellitus with diabetic chronic kidney disease; N18.9 Chronic kidney disease, unspecified; I73.9 Peripheral vascular disease, unspecified; J44.9 Chronic obstructive pulmonary disease, unspecified; K21.9 Gastro-esophageal reflux disease without esophagitis; Z93.1 Gastrostomy status; Z74.01 Bed confinement status; Z23 Encounter for immunization; R51 Headache; R06.02 Shortness of breath; M85.832 Other specified disorders of bone density and structure, left forearm; X58.XXXA Exposure to other specified factors, initial encounter; Y92.129 Unspecified place in nursing home as the place of occurrence of the external cause
CPT/HCPCS: 36415; 70450; 71010; 73080; 73130; 80053; 81003; 82550; 82553; 83880; 84484; 85025; 85610; 85730; 86140; 87086; 87181; 90471; 90715; 96365; 99284; J0696

== ENCOUNTER 2017-11-14 16:30 | Emergency (ER) | payer MEDICAID ==
[~2017-11-14] VITALS: Ht 165.1 cm; Wt 68.0 kg
[~2017-11-14 16:30] MED LIST changes: +CEPHALEXIN250 MG/5 M ORAL
[2017-11-14] MEDS ORDERED: FERROUS SU220 MG/53 GT (17:03)
[2017-11-14] MEDS ORDERED: CALCIUM CARBON500 M1 GT (17:03)
[2017-11-14 17:09] VITALS: BP 152/50
[2017-11-14 17:19] LABS: BASOPHILS % (AUTO) 1.1 % (0.0-2.0); HEMATOCRIT 41.9 % (37.0-47.0); HEMOGLOBIN 13.6 G/DL (12.0-16.0); MEAN CORPUSCULAR VOLUME 102 FL (80-99); MONOCYTES % (AUTO) 7.9 % (1.0-10.0); PLATELET COUNT 220 K/UL (150-450); RED BLOOD COUNT 4.09 M/UL (4.20-5.40); RED CELL DISTRIBUTION WIDTH 12.5 % (11.6-14.8); WHITE BLOOD COUNT 6.7 K/UL (4.8-10.8)
[2017-11-14 17:31] LABS: INR 0.9 (0.9-1.1)
[2017-11-14 17:40] LABS: ANION GAP 9 mmol/L (5-15); BLOOD UREA NITROGEN 28 mg/dL (7-18); CALCIUM 9.6 MG/DL (8.5-10.1); CARBON DIOXIDE 29 MMOL/L (21-32); CHLORIDE 102 MMOL/L (98-107); CREATININE 0.9 MG/DL (0.55-1.30); POTASSIUM 4.4 MMOL/L (3.5-5.1); SODIUM 140 MMOL/L (136-145)
[2017-11-14 17:41] LABS: BILIRUBIN, URINE NEGATIVE (NEGATIVE); COLOR,URINE PALE YELLOW; GLUCOSE, URINE (UA) NEGATIVE (NEGATIVE); KETONES,URINE NEGATIVE (NEGATIVE); LEUKOCYTE ESTERASE ,URINE 3+ (NEGATIVE); NITRITE,URINE NEGATIVE (NEGATIVE); PH,URINE 8 (4.5-8.0); PROTEIN,URINE NEGATIVE (NEGATIVE); UROBILINOGEN,URINE NORMAL MG/DL (0.0-1.0)
[2017-11-14 17:45] LABS: APPEARANCE,URINE SLIGHTLY CLOUDY
[2017-11-14 17:51] LABS: ALANINE AMINOTRANSFERASE 36 U/L (12-78); ALBUMIN 3.7 G/DL (3.4-5.0); ALBUMIN/GLOBULIN RATIO 0.7 (1.0-2.7); ALKALINE PHOSPHATASE 166 U/L (46-116); ASPARTATE AMINO TRANSFERASE 50 U/L (15-37); BILIRUBIN,TOTAL 0.5 MG/DL (0.2-1.0); CREATINE KINASE 91 U/L (26-308)
[2017-11-14 19:30] VITALS: BP 136/45
[2017-11-14] MEDS ORDERED: cefTRIAXone 1 GM in NS 55 ML IVPB ONE (20:15)
[2017-11-14 20:30] VITALS: BP 155/52
--- NOTE | 2017-11-14 20:31 | Emergency Room Report ---
History of Present Illness General Chief Complaint: Eye Problems Source: Patient, Medical Record Present Illness HPI Patient sent in because of discharge from eyes. No fever. Patient without complaints. POLST with DNR. Treated for carpal fracture sustained 10/15/17, seen 10/18 for this. Splint present. Treated in February 2017 with these dx: 1. Hypoxemia, resolved. 2. Urinary tract infection with Proteus mirabilis. 3. Aspiration risk. 4. Dysphagia, gastrostomy tube. 5. History of cerebrovascular accident. 6. Aspiration risk. 7. Functional quadriplegia. 8. Iron-deficiency anemia. 9. Sacral, right lateral foot, and left trochanter decubitus ulcers un- stageable present on admission. Allergies: Coded Allergies: No Known Allergies (Unverified , 08/29/14) Patient History Limited by: medical condition Past Medical History: see triage record, old chart reviewed Past Surgical History: other - G tube Social History: Denies: smoking, alcohol use, drug use Social History Narrative SNF Reviewed Nursing Documentation: PMH: Agreed, PSxH: Agreed Nursing Documentation-PMH Past Medical History: No History, Except For Hx Cardiac Problems: Yes - Anemia, PVD Hx Hypertension: No - Hypotension, PNA Hx Pacemaker: No Hx Asthma: No Hx COPD: Yes Hx Diabetes: Yes Hx Cancer: No Hx Gastrointestinal Problems: Yes - GERD, Esophagitis, G-tube, Dysphagia Hx Dialysis: No - AKF, CKD Hx Neurological Problems: Yes Hx Cerebrovascular Accident: Yes - TIA, Cerebral Infarction without residual Hx Transient Ischemic Attacks: Yes Hx Dementia: Yes Hx Seizures: No Hx Syncope: Yes Hx Dysphasia: Yes Review of Systems All Other Systems: limited Physical Exam Vital Signs Date Time Temp Pulse Resp B/P (MAP) Pulse Ox O2 Delivery O2 Flow Rate FiO2 11/14/17 16:30 97.7 87 18 146/80 95 Room Air Sp02 EP Interpretation: reviewed, abnormal - sat interpreted as low by me General Appearance: no apparent distress, non-toxic, other - frail, Chronically Ill Head: normocephalic, atraumatic Eyes: bilateral eye other - conjunctival inflammation with yellow/beige d/c bilat ENT: moist mucus membranes Neck: supple Respiratory: chest non-tender, lungs clear, normal breath sounds Cardiovascular #1: regular rate, rhythm, no edema Cardiovascular #2: 2+ radial (R) Gastrointestinal: normal bowel sounds, non tender, soft, other - G tube Musculoskeletal: no calf tenderness, pelvis stable, other - splint L forearm Neurologic: alert, responsive, sensory intact, other - smles when spoken to, generalized weakness Psychiatric: mood/affect normal Skin: warm/dry, other - decub Medical Decision Making Diagnostic Impression: Primary Impression: UTI (lower urinary tract infection) Additional Impression: Conjunctivitis Qualified Codes: H10.33 - Unspecified acute conjunctivitis, bilateral ER Course Patient presents with d/c from eyes. DDx: conjunctivitis, viral vs bacterial. Based on nature of d/c suspect bacterial. As chronically ill and low O2 sat with h/o pneumonia, need full evaluation to exclude sepsis with EKG, CXR, labs and UA. Patient treated with mild hydration. Chronically ill patient = complex evaluation. EKG without injury, CXR old calcifications. Labs with pyuria, rest normal. Treated with Rocephin here. Consult with Dr. Rodriguez prior to discharge back to SNF. Patient stable for outpatient observation and treatment. Laboratory Tests Test 11/14/17 17:00 11/14/17 17:20 11/14/17 17:30 White Blood Count 6.7 K/UL (4.8-10.8) Red Blood Count 4.09 M/UL (4.20-5.40) L Hemoglobin 13.6 G/DL (12.0-16.0) Hematocrit 41.9 % (37.0-47.0) Mean Corpuscular Volume 102 FL (80-99) H Mean Corpuscular Hemoglobin 33.2 PG (27.0-31.0) H Mean Corpuscular Hemoglobin Concent 32.4 G/DL (32.0-36.0) Red Cell Distribution Width 12.5 % (11.6-14.8) Platelet Count 220 K/UL (150-450) Mean Platelet Volume 7.1 FL (6.5-10.1) Neutrophils (%) (Auto) 44.0 % (45.0-75.0) L Lymphocytes (%) (Auto) 39.0 % (20.0-45.0) Monocytes (%) (Auto) 7.9 % (1.0-10.0) Eosinophils (%) (Auto) 8.0 % (0.0-3.0) H Basophils (%) (Auto) 1.1 % (0.0-2.0) Prothrombin Time 9.6 SEC (9.30-11.50) Prothrombin Time INR 0.9 (0.9-1.1) PTT 26 SEC (23-33) Sodium Level 140 MMOL/L (136-145) Potassium Level 4.4 MMOL/L (3.5-5.1) Chloride Level 102 MMOL/L (98-107) Carbon Dioxide Level 29 MMOL/L (21-32) Anion Gap 9 mmol/L (5-15) Blood Urea Nitrogen 28 mg/dL (7-18) H Creatinine 0.9 MG/DL (0.55-1.30) Estimate Glomerular Filtration Rate mL/min (>60) Glucose Level 92 MG/DL (74-106) Calcium Level 9.6 MG/DL (8.5-10.1) Total Bilirubin 0.5 MG/DL (0.2-1.0) Aspartate Amino Transferase (AST) 50 U/L (15-37) H Alanine Aminotransferase (ALT) 36 U/L (12-78) Alkaline Phosphatase 166 U/L (46-116) H Total Creatine Kinase 91 U/L (26-308) Troponin I 0.000 ng/mL (0.000-0.056) Pro-B-Type Natriuretic Peptide 181 pg/mL (0-125) H Total Protein 9.1 G/DL (6.4-8.2) H Albumin 3.7 G/DL (3.4-5.0) Globulin 5.4 g/dL Albumin/Globulin Ratio 0.7 (1.0-2.7) L Lactic Acid Level 1.50 mmol/L (0.66-2.22) Urine Color Pale yellow Urine Appearance Slightly cloudy Urine pH 8 (4.5-8.0) Urine Specific [place] 1.010 (1.005-1.035) Urine Protein Negative (NEGATIVE) Urine Glucose (UA) Negative (NEGATIVE) Urine Ketones Negative (NEGATIVE) Urine Occult Blood 4+ (NEGATIVE) H Urine Nitrite Negative (NEGATIVE) Urine Bilirubin Negative (NEGATIVE) Urine Urobilinogen Normal MG/DL (0.0-1.0) Urine Leukocyte Esterase 3+ (NEGATIVE) H Urine RBC 10-15 /HPF (0 - 2) H Urine WBC 40-60 /HPF (0 - 2) H Urine Squamous Epithelial Cells Few /LPF (NONE/OCC) Urine Bacteria Moderate /HPF (NONE) H Microbiology Date/Time Source Procedure Growth Status 11/14/17 17:55 Nasal Nares Influenza Types A,B Antigen (BIRGIT) - Final Complete EKG Diagnostic Results Rate: normal Rhythm: NSR ST Segments: no acute changes Rhythm Strip Diag. Results EP Interpretation: yes Rhythm: NSR, no PVC's, no ectopy Chest X-Ray Diagnostic Results Chest X-Ray Diagnostic Results : Chest X-Ray Ordered: Yes # of Views/Limited/Complete: 1 View Indication: Other EP Interpretation: Yes Interpretation: no consolidation, no pneumothorax, other - calcifications ZAMZAM with possible small effusion L Impression: No acute disease Electronically Signed by: Aram Schneider MD Last Vital Signs Date Time Temp Pulse Resp B/P (MAP) Pulse Ox O2 Delivery O2 Flow Rate FiO2 11/14/17 21:25 82 16 123/60 98 Room Air 11/14/17 20:30 98.4 Status: improved Disposition: XFER SNF Condition: Improved Scripts Nitrofurantoin Monohyd/M-Cryst* (MACROBID 100 MG*) 100 Mg Capsule 100 MG ORAL EVERY 12 HOURS, #14 CAP Prov: Aram Schneider M.D. 11/14/17 Sulfacetamide Sodium (BLEPH-10) 5 Ml Drops 2 DROP OP Q6HR, #14 ML Prov: Aram Schneider M.D. 11/14/17 Referrals: ANTONY RODRIGUEZ (PCP) Aram Schneider M.D. Nov 14, 2017 20:31
[2017-11-14] MEDS ORDERED: NITROFURANTOIN100 M2 ORAL (21:07)
[2017-11-14] MEDS ORDERED: BLEPH-105 ML OP (21:07)
[2017-11-14 21:25] VITALS: BP 123/60
--- NOTE | 2017-11-15 09:56 | Diagnostic Imaging Report ---
Indication: Altered level of consciousness Technique: XRAY Chest 1v. Comparison: 10/18/2017 Findings: Heart size and mediastinal contours are stable. Aorta is again noted to be calcified and tortuous. There is unchanged increased nonspecific interstitial prominence. There is streaky atelectasis at the left base. There is no large pleural effusion. No pneumothorax. Unchanged calcified nodules at the left apex. Impression: Minimal linear opacities at the left base thought to represent atelectasis or scarring. Otherwise no focal consolidation. Stable increased nonspecific interstitial prominence. Unchanged calcifications at the left apex.
--- NOTE | 2017-11-29 14:03 | Cardiology Report ---
APPROVED REPORT EKG Measurement Heart [id number] Normal sinus rhythm Normal ECG
== END 2017-11-14 21:25 ==
LOC: EDBD 16:30 → EMR 17:58
DX: H10.9 Unspecified conjunctivitis (principal); N39.0 Urinary tract infection, site not specified; J44.9 Chronic obstructive pulmonary disease, unspecified; N18.9 Chronic kidney disease, unspecified; Z86.73 Personal history of transient ischemic attack (TIA), and cerebral infarction without residual deficits; Z93.1 Gastrostomy status; E11.9 Type 2 diabetes mellitus without complications; Z66 Do not resuscitate
CPT/HCPCS: 36415; 71045; 80053; 81003; 82550; 83605; 83880; 84484; 85025; 85610; 85730; 86710; 87070; 87086; 87181; 87205; 93005; 96361; 96365; 99284; J0696

== ENCOUNTER 2017-12-03 00:34 | Emergency (ER) | payer MEDICAID ==
[~2017-12-03] VITALS: Ht 167.6 cm; Wt 61.2 kg
[~2017-12-03 00:34] MED LIST changes: +BLEPH-105 ML OP; +CALCIUM CARBON500 M1 GT; +FERROUS SU220 MG/53 GT; +NITROFURANTOIN100 M2 ORAL
--- NOTE | 2017-12-03 02:51 | Emergency Room Report ---
History of Present Illness General Chief Complaint: Malfunctioning Gastric Tube Source: Medical Record, EMS Present Illness HPI Is an 87-year-old female from [facility]. She has multiple medical problem include dementia and has a feeding tube. She was sent in for malfunctioning G- tube. Her feeding tube is a hole in it. No other complaint. No fever or chills but no nausea no vomiting. No diarrhea. Unable to get any history from patient because of her condition. Allergies: Coded Allergies: No Known Allergies (Unverified , 08/29/14) Patient History Past Medical History: see triage record, old chart reviewed Past Surgical History: other Pertinent Family History: none Social History: Denies: smoking Now: No Immunizations: other Reviewed Nursing Documentation: PMH: Agreed, PSxH: Agreed Nursing Documentation-PMH Hx Cardiac Problems: Yes - Anemia, PVD Hx Hypertension: No - Hypotension, PNA Hx Pacemaker: No Hx Asthma: No Hx COPD: Yes Hx Diabetes: Yes Hx Cancer: No Hx Gastrointestinal Problems: Yes - GERD, Esophagitis, G-tube, Dysphagia Hx Dialysis: No - AKF, CKD Hx Neurological Problems: Yes Hx Cerebrovascular Accident: Yes - TIA, Cerebral Infarction without residual Hx Transient Ischemic Attacks: Yes Hx Dementia: Yes Hx Seizures: No Hx Syncope: Yes Hx Dysphasia: Yes Review of Systems Eye: Denies: eye pain, blurred vision ENT: Denies: ear pain, nose congestion, throat swelling Respiratory: Denies: cough, shortness of breath Cardiovascular: Denies: chest pain, palpitations Gastrointestinal: Denies: abdominal pain, diarrhea, nausea, vomiting Musculoskeletal: Denies: back pain, joint pain Skin: Denies: rash Neurological: Denies: headache, numbness Endocrine: Denies: increased thirst, increased urine Hematologic/Lymphatic: Denies: easy bruising All Other Systems: negative except mentioned in HPI Physical Exam Vital Signs Date Time Temp Pulse Resp B/P (MAP) Pulse Ox O2 Delivery O2 Flow Rate FiO2 12/03/17 00:36 98.6 81 16 128/74 97 Nasal Cannula 2.0 vitals normal Sp02 EP Interpretation: reviewed, normal General Appearance: well appearing, no apparent distress, alert Head: normocephalic, atraumatic Eyes: bilateral eye PERRL, bilateral eye EOMI ENT: hearing grossly normal, dry mucus membranes Neck: full range of motion, supple, no meningismus Respiratory: chest non-tender, lungs clear, normal breath sounds Cardiovascular #1: regular rate, rhythm, no murmur Gastrointestinal: normal bowel sounds, non tender, no mass, no organomegaly, no bruit, non-distended, other - G-tube intact has a hole at one of the port Musculoskeletal: back normal, normal range of motion Psychiatric: mood/affect normal Skin: warm/dry Procedures Additional Procedure Procedure Narrative procedure: G-tube placement Indication: G-tube malfunction Description: I remove the old G-tube by first deflating the balloon. I place a 22 Kyr[place] G-tube without any difficulty. Patient tolerated procedure without complication. KUB confirm placement Medical Decision Making Diagnostic Impression: Primary Impression: Malfunction of gastrostomy tube ER Course Patient here for replacement of G-tube. New one Placed without difficulty. We' ll discharge home. Other X-Ray Diagnostic Results Other X-Ray Diagnostic Results : X-Ray ordered: KUB # of Views/Limited Vs Complete: 1 View Indication: Other - Tube placement EP Interpretation: Yes Interpretation: no dislocation, no soft tissue swelling, no fractures, no sbo, other - No extravasation Impression: Other - Satisfactory placement of G-tube Electronically Signed by: Bo Carlisle MD Last Vital Signs Date Time Temp Pulse Resp B/P (MAP) Pulse Ox O2 Delivery O2 Flow Rate FiO2 12/03/17 00:36 98.6 81 16 128/74 97 Nasal Cannula 2.0 Status: improved Disposition: XFER SNF Condition: Stable Patient Instructions: Gastrostomy Tube Home Guide, Adult Additional Instructions: followup your doctor as needed. Return if worse. BO CARLISLE M.D. Dec 03, 2017 02:51
[2017-12-03 04:31] VITALS: BP 128/74
--- NOTE | 2017-12-03 14:09 | Diagnostic Imaging Report ---
Indication: Reason For Exam: TUBE PLCMT Technique: Supine view of the abdomen after injection of water-soluble contrast into gastrostomy Comparison: 03/01/2017 Findings: Contrast opacifies the stomach. No contrast extravasation is demonstrated. The bowel gas pattern is unremarkable. No significant change Impression: Satisfactory position of gastrostomy tube
== END 2017-12-03 05:03 ==
LOC: EDBD 00:34 → EMR 03:16
DX: K94.23 Gastrostomy malfunction (principal); Y83.3 Surgical operation with formation of external stoma as the cause of abnormal reaction of the patient, or of later complication, without mention of misadventure at the time of the procedure; Y92.9 Unspecified place or not applicable; J44.9 Chronic obstructive pulmonary disease, unspecified; I12.9 Hypertensive chronic kidney disease with stage 1 through stage 4 chronic kidney disease, or unspecified chronic kidney disease; N18.9 Chronic kidney disease, unspecified; E11.9 Type 2 diabetes mellitus without complications; K21.9 Gastro-esophageal reflux disease without esophagitis; Z86.73 Personal history of transient ischemic attack (TIA), and cerebral infarction without residual deficits; F03.90 Unspecified dementia, unspecified severity, without behavioral disturbance, psychotic disturbance, mood disturbance, and anxiety
CPT/HCPCS: 43760; 74018; 99284

== ENCOUNTER 2017-12-04 09:29 | Emergency (ER) | payer MEDICAID ==
[~2017-12-04] VITALS: Ht 152.4 cm; Wt 54.4 kg
--- NOTE | 2017-12-04 09:37 | Emergency Room Report ---
History of Present Illness General Chief Complaint: Malfunctioning Gastric Tube Source: Patient, EMS Present Illness HPI Patient is an 87-year-old female sent in by group home after pulling out her G -tube. The patient recent G-tube replacement. The patient not having increased fever or discharge. She prior history of dementia.The patient was noted to be verbal and bedridden Allergies: Coded Allergies: No Known Allergies (Unverified , 08/29/14) Patient History Past Medical History: see triage record Reviewed Nursing Documentation: PMH: Agreed, PSxH: Agreed Nursing Documentation-PMH Hx Cardiac Problems: Yes - Anemia, PVD Hx Hypertension: Yes Hx Pacemaker: No Hx Asthma: No - CHRONIC KIDNEY DISEASE,PERIFERAL VASCULAR DISEASE Hx COPD: Yes Hx Diabetes: Yes Hx Cancer: No Hx Gastrointestinal Problems: Yes - GERD Hx Dialysis: No - AKF, CKD Hx Neurological Problems: Yes Hx Cerebrovascular Accident: Yes Hx Transient Ischemic Attacks: Yes Hx Dementia: Yes Hx Seizures: No Hx Syncope: Yes Hx Dysphasia: Yes Review of Systems All Other Systems: limited - by mental status Physical Exam Vital Signs Date Time Temp Pulse Resp B/P (MAP) Pulse Ox O2 Delivery O2 Flow Rate FiO2 12/04/17 09:15 97.9 91 16 155/90 95 Room Air General Appearance: no apparent distress, Chronically Ill Head: normocephalic, atraumatic ENT: normal pharynx Neck: limited range of motion Respiratory: normal breath sounds, no respiratory distress Cardiovascular #1: no edema Gastrointestinal: soft, other - stoma patent Musculoskeletal: decreased range of mation Neurologic: alert, motor weakness Skin: no rash Medical Decision Making Diagnostic Impression: Primary Impression: PEG (percutaneous endoscopic gastrostomy) adjustment/replacement/removal ER Course Patient presented for G-tube replacement. Gastrostomy tube was replaced with sterile technique. Post procedure KUB read by radiology x-ray showed adequate gastrostomy tube placement. Tube depth was 4 cm at skin. 16 ivorian tube. Patient tolerated well without complications. The patient was discharged back to group home. Patient was return for persistent vomiting, other concerns. Last Vital Signs Date Time Temp Pulse Resp B/P (MAP) Pulse Ox O2 Delivery O2 Flow Rate FiO2 12/04/17 09:15 97.9 91 16 155/90 95 Room Air Status: improved Disposition: [facility] SN[facility] Condition: Stable Ben Coker Dec 04, 2017 09:37
[2017-12-04 09:45] VITALS: BP 143/68
--- NOTE | 2017-12-04 10:15 | Diagnostic Imaging Report ---
Indication: Reason For Exam: TUBE PLCMT Technique: Supine view of the abdomen after injection of water-soluble contrast into gastrostomy Comparison: 12/03/2017 Findings: There is contrast opacification of the stomach. No extraluminal extravasation of contrast is seen. Bowel gas pattern is nonobstructive. Atelectasis noted at the left base. Degenerative changes seen in the spine. Impression: Gastrostomy tube in the stomach.
[2017-12-04 11:17] VITALS: BP 130/61
== END 2017-12-04 11:25 ==
LOC: EDBD 09:29 → EMR 09:53
DX: Z43.1 Encounter for attention to gastrostomy (principal); K21.9 Gastro-esophageal reflux disease without esophagitis; I12.9 Hypertensive chronic kidney disease with stage 1 through stage 4 chronic kidney disease, or unspecified chronic kidney disease; N18.9 Chronic kidney disease, unspecified; E11.9 Type 2 diabetes mellitus without complications; J44.9 Chronic obstructive pulmonary disease, unspecified; Z86.73 Personal history of transient ischemic attack (TIA), and cerebral infarction without residual deficits
CPT/HCPCS: 43760; 74018; 99284; Q9963

== ENCOUNTER 2018-08-02 17:28 | Emergency (ER) | payer MEDICAID ==
[~2018-08-02] VITALS: Ht 160 cm; Wt 72.6 kg
[2018-08-02 17:35] VITALS: BP 110/68
[2018-08-02] MEDS ORDERED: MULTI-DELYN237 ML GT (17:39)
[2018-08-02] MEDS ORDERED: DOCUSATE SODIU100 MG ORAL (17:39)
[2018-08-02] MEDS ORDERED: PRO-STAT LIQUID30 ML GT (17:39)
[2018-08-02] MEDS ORDERED: santyl ointment (17:39)
[2018-08-02] MEDS ORDERED: HYDROCORTISONE-30 GM TOPIC (17:39)
[2018-08-02] MEDS ORDERED: ZINC SULFATE220 M1 GT (17:40)
[2018-08-02] MEDS ORDERED: VITAMIN C500 MG/11 GT (17:40)
--- NOTE | 2018-08-02 18:05 | Emergency Room Report ---
History of Present Illness General Chief Complaint: Abnormal Labs Source: Medical Record, EMS Present Illness HPI 88-year-old female, coming from intermediate, dementia, CVA, bedbound, nonverbal , PEG tube, brought in for positive blood culture. Patient was recently seen in the hospital here 2 days ago, was discharged after being doing diagnosed with UTI. Had a single positive blood culture in only one bottle with gram- positive cocci, the other bottle is negative for organisms at this time. No history another history is able to obtain patient nonverbal Allergies: Coded Allergies: No Known Allergies (Unverified , 08/29/14) Patient History Past Medical History: see triage record Past Surgical History: none Pertinent Family History: none Reviewed Nursing Documentation: PMH: Agreed; PSxH: Agreed Nursing Documentation-PMH Past Medical History: No History, Except For Hx Cardiac Problems: Yes - Anemia, PVD Hx Hypertension: Yes Hx Pacemaker: No Hx Asthma: No - CHRONIC KIDNEY DISEASE,PERIFERAL VASCULAR DISEASE Hx COPD: Yes Hx Diabetes: Yes Hx Cancer: No Hx Gastrointestinal Problems: Yes - GERD Hx Dialysis: No - AKF, CKD Hx Neurological Problems: Yes Hx Cerebrovascular Accident: Yes Hx Transient Ischemic Attacks: Yes Hx Dementia: Yes Hx Seizures: No Hx Syncope: Yes Hx Dysphasia: Yes Review of Systems All Other Systems: limited - nonverbal Physical Exam Vital Signs Date Time Temp Pulse Resp B/P (MAP) Pulse Ox O2 Delivery O2 Flow Rate FiO2 08/02/18 17:33 98.3 90 16 100/61 93 Room Air 98.2 Sp02 EP Interpretation: reviewed, normal General Appearance: mild distress, other - nonverbal, Chronically Ill Head: normocephalic, atraumatic Eyes: bilateral eye normal inspection, bilateral eye PERRL, bilateral eye EOMI ENT: normal ENT inspection, normal pharynx Neck: normal inspection, full range of motion, supple Respiratory: normal inspection, no respiratory distress Cardiovascular #1: normal inspection, regular rate, rhythm, no edema, normal capillary refill Cardiovascular #2: 2+ radial (R), 2+ radial (L) Gastrointestinal: other Musculoskeletal: other - no signs trauma Neurologic: other - Nonverbal and not responsive Psychiatric: other Skin: normal inspection, normal color, no rash, warm/dry, well hydrated, normal turgor Medical Decision Making Diagnostic Impression: Primary Impression: Abnormal laboratory test result ER Course 88-year-old female, chronically ill, multiple comorbidities, called back for positive blood culture in one bottle DDX: Rule out bacteremia/sepsis but possibly this was a contaminant Plan: Obtain labs, ua, EKG, CXR Vancomycin ER course: Patient has been monitored during ED stay, HD stable stable here Disposition: Patient will be discharged back to senior living facility. I spoke with Dr. juan, we repeated all the labs and the blood cultures here, this initial preliminary result was probably a contaminant. We gave her vancomycin anyway. Stable to be discharged Please note that this Emergency Department Report was dictated using [employer] technology software, occasionally this can lead to erroneous entry secondary to interpretation by the dictation equipment. EKG Diagnostic Results EP Interpretation: Yes Rate: normal Rhythm: NSR ST Segments: No acute changes ASA given to patient: No Rhythm Strip EP Interpretation: Yes Rate: 83 Rhythm: NSR, no PVCs, no ectopy Chest X-ray CXR: Ordered: Yes 1 view Indication: fever EP interpretation: Yes Interpretation: No consolidation, no effusion, no PTX, no acute cardiopulmonary disease Impression: No acute disease Electronically signed by Ethel Hammonds MD Laboratory Tests Test 08/02/18 18:05 White Blood Count 7.3 K/UL (4.8-10.8) Red Blood Count 3.85 M/UL (4.20-5.40) L Hemoglobin 13.5 G/DL (12.0-16.0) Hematocrit 39.1 % (37.0-47.0) Mean Corpuscular Volume 102 FL (80-99) H Mean Corpuscular Hemoglobin 35.0 PG (27.0-31.0) H Mean Corpuscular Hemoglobin Concent 34.4 G/DL (32.0-36.0) Red Cell Distribution Width 11.8 % (11.6-14.8) Platelet Count 204 K/UL (150-450) Mean Platelet Volume 8.0 FL (6.5-10.1) Neutrophils (%) (Auto) 48.4 % (45.0-75.0) Lymphocytes (%) (Auto) 33.9 % (20.0-45.0) Monocytes (%) (Auto) 9.6 % (1.0-10.0) Eosinophils (%) (Auto) 7.1 % (0.0-3.0) H Basophils (%) (Auto) 1.1 % (0.0-2.0) Prothrombin Time 9.6 SEC (9.30-11.50) Prothrombin Time INR 0.9 (0.9-1.1) PTT 28 SEC (23-33) Urine Color Pale yellow Urine Appearance Clear Urine pH 7 (4.5-8.0) Urine Specific Gary 1.005 (1.005-1.035) Urine Protein Negative (NEGATIVE) Urine Glucose (UA) Negative (NEGATIVE) Urine Ketones Negative (NEGATIVE) Urine Blood 1+ (NEGATIVE) H Urine Nitrite Negative (NEGATIVE) Urine Bilirubin Negative (NEGATIVE) Urine Urobilinogen 1 MG/DL (0.0-1.0) H Urine Leukocyte Esterase 3+ (NEGATIVE) H Urine RBC 0-2 /HPF (0 - 2) Urine WBC 5-10 /HPF (0 - 2) H Urine Squamous Epithelial Cells Few /LPF (NONE/OCC) Urine Bacteria Occasional /HPF (NONE) Sodium Level 136 MMOL/L (136-145) Potassium Level 4.3 MMOL/L (3.5-5.1) Chloride Level 101 MMOL/L (98-107) Carbon Dioxide Level 27 MMOL/L (21-32) Anion Gap 8 mmol/L (5-15) Blood Urea Nitrogen 24 mg/dL (7-18) H Creatinine 0.9 MG/DL (0.55-1.30) Estimate Glomerular Filtration Rate mL/min (>60) Glucose Level 103 MG/DL (74-106) Lactic Acid Level 2.40 mmol/L (0.4-2.0) H Calcium Level 9.0 MG/DL (8.5-10.1) Total Bilirubin 0.2 MG/DL (0.2-1.0) Aspartate Amino Transferase (AST) 21 U/L (15-37) Alanine Aminotransferase (ALT) 21 U/L (12-78) Alkaline Phosphatase 113 U/L (46-116) Total Creatine Kinase 75 U/L (26-308) Troponin I 0.000 ng/mL (0.000-0.056) Pro-B-Type Natriuretic Peptide 285 pg/mL (0-125) H Total Protein 7.3 G/DL (6.4-8.2) Albumin 2.8 G/DL (3.4-5.0) L Globulin 4.5 g/dL Albumin/Globulin Ratio 0.6 (1.0-2.7) L Last Vital Signs Date Time Temp Pulse Resp B/P (MAP) Pulse Ox O2 Delivery O2 Flow Rate FiO2 08/02/18 17:33 98.3 90 16 100/61 93 Room Air 98.2 Disposition: XFER [facility] Condition: Stable NancyoEthel M.D. Aug 02, 2018 18:05
[2018-08-02] MEDS ORDERED: Vancomycin 1250mg/D5W 250ml 250 ML IVPB ONE ×2 (18:15→19:45)
[2018-08-02 18:32] LABS: APPEARANCE,URINE CLEAR; BILIRUBIN, URINE NEGATIVE (NEGATIVE); COLOR,URINE PALE YELLOW; GLUCOSE, URINE (UA) NEGATIVE (NEGATIVE); KETONES,URINE NEGATIVE (NEGATIVE); LEUKOCYTE ESTERASE ,URINE 3+ (NEGATIVE); NITRITE,URINE NEGATIVE (NEGATIVE); PH,URINE 7 (4.5-8.0); PROTEIN,URINE NEGATIVE (NEGATIVE); UROBILINOGEN,URINE 1 MG/DL (0.0-1.0)
[2018-08-02 18:33] LABS: BASOPHILS % (AUTO) 1.1 % (0.0-2.0); EOSINOPHILS % (AUTO) 7.1 % (0.0-3.0); HEMATOCRIT 39.1 % (37.0-47.0); HEMOGLOBIN 13.5 G/DL (12.0-16.0); LYMPHOCYTES % (AUTO) 33.9 % (20.0-45.0); MEAN CORPUSCULAR VOLUME 102 FL (80-99); MONOCYTES % (AUTO) 9.6 % (1.0-10.0); NEUTROPHILS % (AUTO) 48.4 % (45.0-75.0); PLATELET COUNT 204 K/UL (150-450); RED BLOOD COUNT 3.85 M/UL (4.20-5.40); RED CELL DISTRIBUTION WIDTH 11.8 % (11.6-14.8); WHITE BLOOD COUNT 7.3 K/UL (4.8-10.8)
[2018-08-02 18:46] LABS: ANION GAP 8 mmol/L (5-15); BLOOD UREA NITROGEN 24 mg/dL (7-18); CARBON DIOXIDE 27 MMOL/L (21-32); CHLORIDE 101 MMOL/L (98-107); CREATININE 0.9 MG/DL (0.55-1.30); POTASSIUM 4.3 MMOL/L (3.5-5.1); SODIUM 136 MMOL/L (136-145)
[2018-08-02 18:49] LABS: INR 0.9 (0.9-1.1)
[2018-08-02 18:57] LABS: ALANINE AMINOTRANSFERASE 21 U/L (12-78); ALBUMIN 2.8 G/DL (3.4-5.0); ALBUMIN/GLOBULIN RATIO 0.6 (1.0-2.7); ALKALINE PHOSPHATASE 113 U/L (46-116); ASPARTATE AMINO TRANSFERASE 21 U/L (15-37); BILIRUBIN,TOTAL 0.2 MG/DL (0.2-1.0); CREATINE KINASE 75 U/L (26-308)
[2018-08-02 20:52] VITALS: BP 115/62
[2018-08-02 23:30] VITALS: BP 115/62
--- NOTE | 2018-08-03 12:11 | Diagnostic Imaging Report ---
Indication: Chest pain Comparison: 07/31/2018 A single view chest radiograph was obtained. Findings: No definite infiltrate or pulmonary vascular congestion identified. The heart is enlarged. There is a dense calcification within the left upper lobe again noted. The aorta is mildly enlarged consistent with atherosclerotic vascular disease. The bones are osteopenic. Impression: No acute disease Old granulomatous disease
--- NOTE | 2018-08-03 15:15 | Cardiology Report ---
APPROVED REPORT EKG Measurement Heart [id number] Normal sinus rhythm Normal ECG
== END 2018-08-02 23:30 ==
LOC: EDUNIT# 17:28 → EDBD 17:28 → CANBEDREQ 19:31 → EMR 19:49
DX: R78.9 Finding of unspecified substance, not normally found in blood (principal); R07.9 Chest pain, unspecified; I10 Essential (primary) hypertension; E11.9 Type 2 diabetes mellitus without complications
CPT/HCPCS: 36415; 71045; 80053; 81003; 82550; 83605; 83880; 84484; 85025; 85610; 85730; 87040; 93005; 96365; 99284; J3370

== ENCOUNTER 2018-09-29 09:44 | Emergency (ER) | payer MEDICAID ==
[~2018-09-29] VITALS: Ht 152.4 cm; Wt 54.4 kg
[~2018-09-29 09:44] MED LIST changes: +HYDROCORTISONE-30 GM TOPIC; +MULTI-DELYN237 ML GT; +PRO-STAT LIQUID30 ML GT; +VITAMIN C500 MG/11 GT; +ZINC SULFATE220 M1 GT; +santyl ointment
[2018-09-29] MEDS ORDERED: ACETAMINOP160 MG/5 M GT (10:00)
[2018-09-29] MEDS ORDERED: DOCUSATE SODIU100 M2 GT ×2 (10:07→10:10)
[2018-09-29] MEDS ORDERED: BENADRYL25 M3 PO ×2 (10:07→10:09)
[2018-09-29] MEDS ORDERED: FERROUS SU220 MG/51 PO (10:07)
[2018-09-29] MEDS ORDERED: FERROUS SU220 MG/51 GT (10:11)
[2018-09-29 10:17] VITALS: BP 103/60
--- NOTE | 2018-09-29 10:23 | Emergency Room Report ---
History of Present Illness General Chief Complaint: Malfunctioning Gastric Tube Source: Medical Record, EMS Present Illness HPI Ms. mC is an 88 yo female who presents with need for G tube replacement. Patient is nonverbal. I received report from nurse at SNF. Allergies: Coded Allergies: No Known Allergies (Unverified , 08/29/14) Patient History Past Medical History: see triage record, old chart reviewed Past Surgical History: unable to obtain Pertinent Family History: unable to obtain Social History Narrative patient is resident of detention facility Nursing Documentation-PMH Past Medical History: No History, Except For Hx Cardiac Problems: No - Syncope ; sepsis; Anemia Hx Pacemaker: No Hx Asthma: No - PNA; Hx COPD: Yes Hx Diabetes: Yes Hx Cancer: No Hx Dialysis: No - Acute Kidney Failure; Chronic Kidney Dz History Of Psychiatric Problem: No - Dementia Hx Neurological Problems: Yes Hx Cerebrovascular Accident: Yes - TIA Hx Transient Ischemic Attacks: Yes Hx Dementia: Yes Hx Seizures: No Hx Syncope: Yes Hx Dysphasia: Yes Review of Systems All Other Systems: limited - nonverbal Physical Exam Vital Signs Date Time Temp Pulse Resp B/P (MAP) Pulse Ox O2 Delivery O2 Flow Rate FiO2 09/29/18 09:45 98.8 87 16 123/67 93 Room Air Sp02 EP Interpretation: reviewed, normal General Appearance: normal inspection, no apparent distress, Chronically Ill - elderly frail Eyes: bilateral eye normal inspection ENT: moist mucus membranes Neck: normal inspection Respiratory: normal inspection, no respiratory distress Gastrointestinal: non tender, soft, other - gastrostomy tube with tube defect and balloon eroded, unable to determine size, surrounding skin irritation Musculoskeletal: other - contracted atrophied lower extremities Psychiatric: depressed affect, other - nonverbal, Procedures Additional Procedure Procedure Narrative procedure: gastrostomy tube replacement Using sterile technique, I was able to remove existing gastrostomy tube. Balloon was eroded. I was able to easily insert 18 Fr gastrostomy tube. No complications. I used 20 ml of NS to inflate balloon. Medical Decision Making Diagnostic Impression: Primary Impression: Malfunction of gastrostomy tube Additional Impression: Encounter for feeding tube placement G tube replacement successful, confirmed with G tube check with gastrograffin/ KUB Last Vital Signs Date Time Temp Pulse Resp B/P (MAP) Pulse Ox O2 Delivery O2 Flow Rate FiO2 09/29/18 10:17 98.2 82 16 103/60 93 Room Air Status: unchanged Disposition: XFER SNF Condition: Stable Referrals: Maryann Rodriguez MD (PCP) Laney Monson MD Sep 29, 2018 10:23
[2018-09-29] MEDS ORDERED: Gastrograffin 30ml ORAL ONE (11:00)
[2018-09-29 13:14] VITALS: BP 121/56
--- NOTE | 2018-09-29 14:05 | Diagnostic Imaging Report ---
Indication: Post gastrostomy replacement Technique: Supine view of the upper abdomen after injection of water-soluble contrast into gastrostomy Comparison: 06/27/2018 Findings: Contrast opacifies the stomach. No contrast extravasation is demonstrated. The bowel gas pattern is unremarkable. No significant change Impression: Satisfactory position of gastrostomy tube
== END 2018-09-29 13:18 ==
LOC: EDBD 09:44 → EDUNIT# 09:44 → EMR 10:00
DX: Z43.1 Encounter for attention to gastrostomy (principal); I69.821 Dysphasia following other cerebrovascular disease; F03.90 Unspecified dementia, unspecified severity, without behavioral disturbance, psychotic disturbance, mood disturbance, and anxiety; J44.9 Chronic obstructive pulmonary disease, unspecified; E11.9 Type 2 diabetes mellitus without complications
CPT/HCPCS: 43760; 74018; 99283; Q9963; Z7502

== ENCOUNTER 2018-12-01 13:10 | Emergency (ER) | payer MEDICAID ==
[~2018-12-01] VITALS: Ht 162.6 cm; Wt 49.9 kg
[~2018-12-01 13:10] MED LIST changes: +ACETAMINOP160 MG/5 M GT; +BENADRYL25 M3 PO; +DOCUSATE SODIU100 M2 GT; +FERROUS SU220 MG/51 GT; +FERROUS SU220 MG/51 PO
[2018-12-01 13:44] VITALS: BP 108/85
--- NOTE | 2018-12-01 13:46 | NUR ---
ED Nurse Note:pt. was BIBA from SNF for GT replacement, pt. is confused, no signs of pain noted, VSS, GT was replaced by ER MD it's FR 18
--- NOTE | 2018-12-01 13:53 | Emergency Room Report ---
History of Present Illness General Chief Complaint: Malfunctioning Gastric Tube Source: EMS Present Illness HPI Patient presents with reports of feeding tube malfunction History is obtained from nursing facility reports patient herself is nonverbal History of present illness is limited There was no reports of vomiting or diarrhea feedings were becoming more difficult with the existing feeding tube There was also discharge There is no reports of fevers Allergies: Coded Allergies: No Known Allergies (Unverified , 08/29/14) Patient History Limited by: medical condition Past Medical History: see triage record Pertinent Family History: unable to obtain Now: No Reviewed Nursing Documentation: PMH: Agreed; PSxH: Agreed Nursing Documentation-PM Past Medical History: No History, Except For Hx Cardiac Problems: No - Syncope ; sepsis; Anemia Hx Pacemaker: No Hx Asthma: No - PNA; Hx COPD: Yes Hx Diabetes: Yes Hx Cancer: No Hx Dialysis: No - Acute Kidney Failure; Chronic Kidney Dz Hx Neurological Problems: Yes Hx Cerebrovascular Accident: Yes - TIA Hx Transient Ischemic Attacks: Yes Hx Dementia: Yes Hx Seizures: No Hx Syncope: Yes Hx Dysphasia: Yes Review of Systems All Other Systems: limited - Other than the ones mentioned in the history of present illness all others are reviewed however they do stay limited due to the patient's mental status Physical Exam Vital Signs Date Time Temp Pulse Resp B/P (MAP) Pulse Ox O2 Delivery O2 Flow Rate FiO2 12/01/18 13:13 97.7 82 14 118/62 95 Room Air Sp02 EP Interpretation: reviewed, normal General Appearance: no apparent distress Head: normocephalic, atraumatic Eyes: bilateral eye PERRL ENT: normal pharynx Neck: supple Respiratory: lungs clear, no retraction, no accessory muscle use Cardiovascular #1: regular rate, rhythm Gastrointestinal: other - Soft abdomen, feeding tube is through the stoma however does appear as there is some leaking around the site Musculoskeletal: other - Patient chronically debilitated no obvious focal deficit Neurologic: responsive - To physical stimuli Skin: no rash Lymphatic: no adenopathy Medical Decision Making Diagnostic Impression: Primary Impression: Malfunction of gastrostomy tube ER Course Approximately 7 mL of fluid were removed from the existing balloon on the feeding tube This feeding tube was removed without any incidents A new 18-gauge feeding tube was placed through the stoma without any resistance The balloon was inflated area taped down KUB Gastrografin is obtained for placement and patient stable for close outpatient follow-up Other X-Ray Diagnostic Results Other X-Ray Diagnostic Results : X-Ray ordered: KUB # of Views/Limited Vs Complete: 1 View Indication: Other - Feeding tube placement EP Interpretation: Yes Interpretation: no dislocation, no soft tissue swelling, other - No extravasation Impression: No acute disease - Appropriate placement Electronically Signed by: Mark Pineda DO Last Vital Signs Date Time Temp Pulse Resp B/P (MAP) Pulse Ox O2 Delivery O2 Flow Rate FiO2 12/01/18 13:44 97.7 79 14 108/85 98 Room Air Status: improved Disposition: XFER SNF Condition: Improved Additional Instructions: Patient is provided with the discharge instructions notified to follow up with primary doctor in the next 2-3 days otherwise return to the er with any worsening symptoms. Please note that this report is being documented using [employer] technology. This can lead to erroneous entry secondary to incorrect interpretation by the dictating instrument. Mark Pineda DO Dec 01, 2018 13:53
--- NOTE | 2018-12-01 14:32 | Diagnostic Imaging Report ---
Indication: Gastrostomy evaluation Comparison: None Single view of the abdomen obtained Findings: The gastrostomy is in the body of the stomach. There is contrast in the stomach and duodenum. IMPRESSION: Satisfactory position of gastrostomy. No leak
[2018-12-01 19:22] VITALS: BP 108/85
== END 2018-12-01 19:23 | disposition home or self-care (01) ==
LOC: EDBD 13:10 → EMR 15:00
DX: K94.23 Gastrostomy malfunction (principal); Y83.3 Surgical operation with formation of external stoma as the cause of abnormal reaction of the patient, or of later complication, without mention of misadventure at the time of the procedure; Y92.9 Unspecified place or not applicable; E11.9 Type 2 diabetes mellitus without complications; J44.9 Chronic obstructive pulmonary disease, unspecified; Z86.73 Personal history of transient ischemic attack (TIA), and cerebral infarction without residual deficits
CPT/HCPCS: 43762; 74018; 99283; Z7502